=== PATIENT | female | born 1965 | race Caucasian/White ===

== ENCOUNTER 2018-12-29 17:26 | Inpatient (IN) | payer OTHER ==
[2018-12-29 17:35] VITALS: BMI 26.1
--- NOTE | 2018-12-29 18:05 | PDOC ---
History of Present Illness - General Chief Complaint: Vaginal Bleeding Stated Complaint: VAGINAL BLEEDING X 2 WEEKS,FEELS TIRED Time Seen by Provider: 12/29/18 17:29 History Source: Patient Exam Limitations: No Limitations - History of Present Illness Initial Comments: 12/29/18 18:03 53y F with PMH of HTN presenting to ED with complaints of vaginal bleeding x2 weeks and weakness. Patient says that she has been having heavy bleeding with clots. She saw her manager latin at [facility], had blood work and ultrasound done but does not know the results. She says she was placed on a pill which has reduced the bleeding but she says she feels tired, especially when she exerts herself. She also says that she is appearing more pale. She saw her PMD today and was told to come to the ED. Denies abdominal pain, urinary symptoms, headache, n/v/d, chest pain, sob, fevers, chills. PMD: Natalee PMH: see hpi Meds: see med rec Allergies: PCN Past History - Past Medical History Allergies/Adverse Reactions: Allergies Allergy/AdvReac Type Severity Reaction Status Date / Time Penicillins Allergy Intermediate Rash Verified 12/29/18 17:28 Home Medications: Ambulatory Orders Amlodipine Besylate [Norvasc -] 5 mg PO DAILY 12/29/18 Ferrous Sulfate [Slow Fe] 142 mg PO DAILY 12/29/18 Hydrochlorothiazide [Hctz -] 12.5 mg PO DAILY 12/29/18 COPD: No HTN: Yes - Psycho Social/Smoking Cessation Hx Smoking History: Never smoked Hx Alcohol Use: No Drug/Substance Use Hx: No Review of Systems - Review of Systems Constitutional: Yes: Weakness HEENTM: No: Symptoms Reported Respiratory: No: Symptoms reported Cardiac (ROS): Yes: Lightheadedness ABD/GI: No: Symptoms Reported : Yes: See HPI Musculoskeletal: No: Symptoms Reported Integumentary: No: Symptoms Reported Neurological: No: Symptoms reported *Physical Exam - Vital Signs Last Vital Signs Temp Pulse Resp BP Pulse Ox 98 F 77 19 166/91 100 12/29/18 17:28 12/29/18 17:28 12/29/18 17:28 12/29/18 17:28 12/29/18 17:28 - Physical Exam General Appearance: Yes: Appropriately Dressed, Mild Distress, Thin HEENT: positive: EOMI, RADHA, Pale Conjunctivae, Other (pale mucosa) Neck: positive: Trachea midline, Supple. negative: Lymphadenopathy (R), Lymphadenopathy (L) Respiratory/Chest: positive: Lungs Clear, Normal Breath Sounds. negative: Crackles, Rales, Rhonchi, Stridor, Wheezing Cardiovascular: positive: Regular Rhythm, Regular Rate, S1, S2. negative: Edema , JVD, Murmur Vascular Pulses: Dorsalis-Pedis (R): 2+, Doralis-Pedis (L): 2+ Female Pelvic Exam: positive: vaginal bleeding (pooling into vault) Gastrointestinal/Abdominal: positive: Normal Bowel Sounds, Soft Musculoskeletal: negative: CVA Tenderness Extremity: positive: Normal Capillary Refill. negative: Pedal Edema, Swelling, Calf Tenderness Integumentary: positive: Dry, Warm, Pale Neurologic: positive: development expert II-XII NML intact, Fully Oriented, Alert, Normal Mood/ Affect, Normal Response, Motor Strength 5/5 ED Treatment Course - LABORATORY CBC & Chemistry Diagram: 12/29/18 17:50 12/29/18 17:50 - RADIOLOGY Radiology Studies Ordered: Category Date Time Status TRANSVAGINAL ULTRASOUND US [US] Stat Ultrasound 12/29/18 18:00 Ordered Medical Decision Making - Medical Decision Making 12/29/18 19:07 53y F presenting to ED for weakness and pallor likely 2/2 vaginal bleeding. will order cbc, cmp, coags, ts, tvus. hgb 6.7, coags wnl. will transfuse 2u. pt consented. TVUS shows endometrial thickening. no masses. due to continuous bleeding (blood in vault) and anemia requiring trasfusion, patient will benefit from admission. signed out to night team, will need DIAGNOSTIC TECHNOLOGIST consult. 12/29/18 19:11 Discharge - Discharge Information Problems reviewed: Yes Clinical Impression/Diagnosis: Vaginal bleeding Anemia Qualifiers: Anemia type: unspecified type Qualified Code(s): D64.9 - Anemia, unspecified Condition: Stable - Admission Yes - Follow up/Referral Referrals: Palomo Albright MD [Primary Care Provider] - - Patient Discharge Instructions - Post Discharge Activity
--- NOTE | 2018-12-29 18:08 | PDOC ---
Attending Attestation - Resident Resident Name: AlysiaAlondra - ED Attending Attestation I have performed the following: I have examined & evaluated the patient, The case was reviewed & discussed with the resident, I agree w/resident's findings & plan - HPI HPI: 12/29/18 18:05 53-year-old female presenting with heavy vaginal bleeding x2 weeks, now associated with generalized weakness and pallor over the last 4 to 5 days. She went to see her primary care doctor, Dr. Albright earlier this afternoon, told that her color was abnormal refer her to the emergency department for further evaluation. She had seen her proof clerk at [facility] for evaluation of the dysfunctional uterine bleeding presumed to be related to her perimenopausal state, had not received her ultrasound reports yet despite phone calls. Patient denies any fevers, chills, abdominal pain, nausea, vomiting, diarrhea or any urinary symptoms. - Physicial Exam PE: 12/29/18 18:06 Agree with the resident's HPI and PE as documented in the electronic medical record. NAD, well appearing, EOMI, PERRL, pale conjunctiva., anicteric; neck supple. lungs clear, RRR, abdomen soft nontender. no rebound, guarding. Back nontender. VEE x4, no focal neuro deficits. No peripheral edema. Pale color for ethnicity, WWP. no jaundice. see pelvic exam done by resident, +Bleeding 12/29/18 19:00 - Medical Decision Making 12/29/18 18:07 Vital Signs Temp Pulse Resp BP Pulse Ox 98 F 77 19 166/91 100 12/29/18 17:28 12/29/18 17:28 12/29/18 17:28 12/29/18 17:28 12/29/18 17:28 Differential diagnosis includes the following dysfunctional uterine bleeding, fibroids, infection, hormonal imbalance, anemia, electrolyte/metabolic derangements, mass Type and screen sent, basic labs including CBC. Pelvic ultrasound to evaluate for structural abnormalities for source of dysfunctional uterine bleeding. Had received prior call in from primary care office, clinical callback pending results. Laboratory results noted for acute anemia symptomatic in nature due to the heavy vaginal bleeding consistent with bedside pelvic examination. She is actively bleeding to a moderate degree per resident examination. H/H is 6.7/ 20.3. Electrolytes and coags are fine. Type and screen sent x2, will transfuse 2 units PRBCs and will admit to medical team for management of symptomatic anemia and bleeding, serial crits and examinations. SUPERVISOR SHIPPING ROOM cs with [facility], Dr Marcelo, at [facility] for possible surgical/ procedural management. 12/29/18 18:59 12/31/18 07:34
[2018-12-29 18:14] LABS: BASO % 0.7 % (0-2.0); EOS % 2.7 % (0-4.5); LYMPH % 28.3 % (8-40); MCH 28.6 pg (25.7-33.7); MCHC 33.1 g/dl (32.0-36.0); MEAN CELL VOLUME 86.5 fl (80-96); MEAN PLT VOLUME 8.6 fl (7.5-11.1); MONO % 8.1 % (3.8-10.2); NEUT % 60.2 % (42.8-82.8); PLATELET COUNT 300 K/MM3 (134-434); RBC 2.35 M/mm3 (3.60-5.2); RDW 12.5 % (11.6-15.6); WHITE BLOOD COUNT 4.5 K/mm3 (4.0-10.8)
[2018-12-29 18:17] LABS: HEMATOCRIT 20.3 % (32.4-45.2); HEMOGLOBIN 6.7 GM/dl (10.7-15.3)
[2018-12-29 18:20] LABS: INR 1.06 (0.82-1.09); PROTHROMBIN TIME (PATIENT) 11.9 SEC (10.2-13.0)
[2018-12-29 18:24] LABS: ALBUMIN 3.8 g/dl (3.4-5.0); ALK PHOS 34 U/L (45-117); ANION GAP 9 MMOL/L (8-16); BILIRUBIN,TOTAL 0.3 mg/dl (0.2-1); CALCIUM 8.5 mg/dl (8.5-10); CHLORIDE 100 mmol/L (98-107); CO2 26 mmol/L (21-32); GLUCOSE,RANDOM 96 mg/dl (74-106); POTASSIUM 3.7 mmol/L (3.5-5.1); SGOT/AST 17 U/L (15-37); SGPT/ALT 15 U/L (13-61); SODIUM 135 mmol/L (136-145); TOT PROT 6.5 g/dl (6.4-8.2)
[2018-12-29 18:26] LABS: CREATININE < 0.6 mg/dl (0.55-1.3)
[2018-12-29 18:33] LABS: EPITHELIAL CELLS FEW /hpf
--- NOTE | 2018-12-29 22:02 | HP ---
Admitting History and Physical - Primary Care Physician PCP: Palomo Albright - Admission Chief Complaint: SOB, Fatigue, Vaginal Bleeding History of Present Illness: This is a 53 y/o woman with a PMHx of HTN. Who presents to the ED with generalized weakness, SOB, and vaginal bleeding with large clots x 3 weeks. Patient reports having irregular heavy menstrual cycles lasting > 5 days. Patient reports having increased SOB on exertion. She reports seeing a INVOICE CLERK and being placed on medication to stop the bleeding, which she states "It did not help". Patient reports loss of weight, appetite for 2-3 months. Patient denies fever, chills, cough, CP, palpitations, AP, N/V/D, constipation, melena, hematochezia, dysuria History Source: Patient Limitations to Obtaining History: No Limitations - Past Medical History Cardiovascular: Yes: HTN Reproductive: Yes: Fibroids - Smoking History Smoking history: Never smoked - Alcohol/Substance Use Hx Alcohol Use: No Home Medications - Allergies Allergies/Adverse Reactions: Allergies Allergy/AdvReac Type Severity Reaction Status Date / Time Penicillins Allergy Intermediate Rash Verified 12/29/18 17:28 - Home Medications Home Medications: Ambulatory Orders Amlodipine Besylate [Norvasc -] 5 mg PO DAILY 12/29/18 Ferrous Sulfate [Slow Fe] 142 mg PO DAILY 12/29/18 Hydrochlorothiazide [Hctz -] 12.5 mg PO DAILY 12/29/18 Family Medical History Family Hx Cancer: Mother (Ovarian- ) Family Hx Cardiac Disorders: Father (Stroke- ) Other Family History: Brother- alive and well Review of Systems - Review of Systems Constitutional: reports: Loss of Appetite, Unintentional Wgt. Loss, Weakness Eyes: reports: No Symptoms HENT: reports: No Symptoms Neck: reports: No Symptoms Cardiovascular: reports: Shortness of Breath Respiratory: reports: SOB, SOB on Exertion Gastrointestinal: reports: No Symptoms Genitourinary: reports: Vaginal Bleeding Breasts: reports: No Symptoms Reported Musculoskeletal: reports: No Symptoms Integumentary: reports: No Symptoms Neurological: reports: Weakness Endocrine: reports: No Symptoms Hematology/Lymphatic: reports: Excessive Bleeding Psychiatric: reports: No Symptoms Pain Intensity: 0 Physical Examination Vital Signs: Vital Signs Temperature 98.5 F 12/29/18 19:58 Pulse Rate 72 12/29/18 19:58 Respiratory Rate 12/29/18 17:28 Blood Pressure 148/98 12/29/18 19:58 O2 Sat by Pulse Oximetry (%) 100 12/29/18 19:58 Constitutional: Yes: Anxious, Pallor Eyes: Yes: Conjunctiva Clear (pale), EOM Intact, PERRL HENT: Yes: WNL, Atraumatic, Normocephalic Neck: Yes: WNL, Supple, Trachea Midline Cardiovascular: Yes: WNL, Regular Rate and Rhythm, S1, S2 Respiratory: Yes: WNL, Regular, CTA Bilaterally Gastrointestinal: Yes: WNL, Normal Bowel Sounds, Soft Breast(s): Yes: WNL Musculoskeletal: Yes: WNL Extremities: Yes: WNL Edema: No Peripheral Pulses WNL: Yes Neurological: Yes: WNL, Alert, Oriented, Cran Nerves II-XII Intact ...Motor Strength: WNL Psychiatric: Yes: WNL, Alert, Oriented Labs: CBC, BMP 12/29/18 17:50 12/29/18 17:50 Laboratory Results - last 24 hr 12/29/18 12/29/18 12/29/18 17:50 17:50 17:50 WBC 4.5 RBC 2.35 L Hgb 6.7 L* Hct 20.3 L MCV 86.5 MCH 28.6 MCHC 33.1 RDW 12.5 Plt Count 300 MPV 8.6 Absolute Neuts (auto) 2.7 Neutrophils % 60.2 Lymphocytes % 28.3 Monocytes % 8.1 Eosinophils % 2.7 Basophils % 0.7 PT with INR INR PTT (Actin FS) Sodium 135 L Potassium 3.7 Chloride 100 Carbon Dioxide 26 Anion Gap 9 BUN 13.0 Creatinine < 0.6 Est GFR (CKD-EPI)AfAm 119.77 Est GFR (CKD-EPI)NonAf 103.34 Random Glucose 96 Calcium 8.5 Ferritin Total Bilirubin 0.3 AST 17 ALT 15 Alkaline Phosphatase 34 L Total Protein 6.5 Albumin 3.8 Urine Color Urine Appearance Urine pH Urine Protein Urine Glucose (UA) Urine Ketones Urine Blood Urine Nitrite Urine Bilirubin Urine Urobilinogen Ur Leukocyte Esterase Urine RBC Urine WBC Ur Transition Epith Cell Urine Bacteria Blood Type O NEGATIVE Antibody Screen Negative Crossmatch See Detail 12/29/18 12/29/18 12/29/18 17:50 17:50 17:50 WBC RBC Hgb Hct MCV MCH MCHC RDW Plt Count MPV Absolute Neuts (auto) Neutrophils % Lymphocytes % Monocytes % Eosinophils % Basophils % PT with INR 11.9 INR 1.06 PTT (Actin FS) 26.5 Sodium Potassium Chloride Carbon Dioxide Anion Gap BUN Creatinine Est GFR (CKD-EPI)AfAm Est GFR (CKD-EPI)NonAf Random Glucose Calcium Ferritin Total Bilirubin AST ALT Alkaline Phosphatase Total Protein Albumin Urine Color Yellow Urine Appearance Slightly Urine pH 5.5 Urine Protein Negative Urine Glucose (UA) Negative Urine Ketones Negative Urine Blood 3+ H Urine Nitrite Negative Urine Bilirubin Negative Urine Urobilinogen 0.2 Ur Leukocyte Esterase Negative Urine RBC 40-60 Urine WBC 0-2 Ur Transition Epith Cell Few Urine Bacteria Few Blood Type Antibody Screen Crossmatch 12/29/18 17:50 WBC RBC Hgb Hct MCV MCH MCHC RDW Plt Count MPV Absolute Neuts (auto) Neutrophils % Lymphocytes % Monocytes % Eosinophils % Basophils % PT with INR INR PTT (Actin FS) Sodium Potassium Chloride Carbon Dioxide Anion Gap BUN Creatinine Est GFR (CKD-EPI)AfAm Est GFR (CKD-EPI)NonAf Random Glucose Calcium Ferritin 11.2 Total Bilirubin AST ALT Alkaline Phosphatase Total Protein Albumin Urine Color Urine Appearance Urine pH Urine Protein Urine Glucose (UA) Urine Ketones Urine Blood Urine Nitrite Urine Bilirubin Urine Urobilinogen Ur Leukocyte Esterase Urine RBC Urine WBC Ur Transition Epith Cell Urine Bacteria Blood Type Antibody Screen Crossmatch Imaging - Results Chest X-ray: Image Reviewed Ultrasound: Image Reviewed Problem List - Problems (1) Symptomatic anemia Assessment/Plan: Likely secondary to Menorrhagia Hgb 6.7 2 units of PRBCs-pending Will give Lasix between units Serial CBC Monitor vitals Add on FE, TIBC, Ferritin Consider Hematology consult Code(s): D64.9 - ANEMIA, UNSPECIFIED (2) Menorrhagia Assessment/Plan: Appreciate INVOICE CLERK consult PRBCs-pending Monitor vitals Trend CBC Code(s): N92.0 - EXCESSIVE AND FREQUENT MENSTRUATION WITH REGULAR CYCLE (3) HTN (hypertension) Assessment/Plan: stable Monitor BP Continue home med Code(s): I10 - ESSENTIAL (PRIMARY) HYPERTENSION Assessment/Plan This is a 53y/o woman with a PMHx of HTN. Admitted for Symptomatic Anemia, Menorrhagia for further evaluation of their emergent condition. Plan: See Problem List FEN D51/2NS@60ml/hr Replete lytes prn NPO DVT ppx OOB SCDs Hold ACs secondary to Anemia, Menorrhagia Code Status: Full Code Dispo: Requires Inpatient Care Visit type - Emergency Visit Emergency Visit: Yes ED Registration Date: 12/29/18 Care time: The patient presented to the Emergency Department on the above date and was hospitalized for further evaluation of their emergent condition. - New Patient This patient is new to me today: Yes Date on this admission: 12/29/18 - Critical Care Critical Care patient: No
[2018-12-30] MEDS ORDERED: FUROSEMIDE 40 MG/4 ML INJECTABLE VIAL IVPUSH ONE (04:22)
--- NOTE | 2018-12-30 08:09 | PN ---
Progress Note (short form) - Note Progress Note: rn operating room patient seen, receiving blood transfusion , has mild vaginal bleeding . advised hysteroscopy D&C , risks and benefit discussed.
[2018-12-30 11:33] LABS: BASO % 0.9 % (0-2.0); EOS % 2.5 % (0-4.5); HEMATOCRIT 26.8 % (32.4-45.2); HEMOGLOBIN 9.2 GM/dL (10.7-15.3); LYMPH % 21.7 % (8-40); MCH 28.8 pg (25.7-33.7); MCHC 34.2 g/dl (32.0-36.0); MEAN CELL VOLUME 84.1 fl (80-96); MEAN PLT VOLUME 8.4 fl (7.5-11.1); MONO % 7.7 % (3.8-10.2); NEUT % 67.2 % (42.8-82.8); PLATELET COUNT 274 K/MM3 (134-434); RBC 3.19 M/mm3 (3.60-5.2); RDW 14.9 % (11.6-15.6); WHITE BLOOD COUNT 4.1 K/mm3 (4.0-10.0)
--- NOTE | 2018-12-30 12:21 | PN ---
Progress Note, Physician Chief Complaint: Anemia Menorrhagia History of Present Illness: Previous notes and events reviewed awake and alert NAD s/p 2U PRBC blood transfusion Hg 6.7~9.2 patient is scheduled for D&C with Dr Tirado at 2pm sts having mild vaginal bleeding - Objective Vital Signs: Vital Signs Temperature 98.2 F 12/30/18 09:05 Pulse Rate 75 12/30/18 09:05 Respiratory Rate 20 12/30/18 09:05 Blood Pressure 142/90 12/30/18 09:05 O2 Sat by Pulse Oximetry (%) 99 12/30/18 09:00 Constitutional: Yes: No Distress, Calm Eyes: Yes: Conjunctiva Clear HENT: Yes: Atraumatic Cardiovascular: Yes: Regular Rate and Rhythm Respiratory: Yes: Regular, CTA Bilaterally Gastrointestinal: Yes: Normal Bowel Sounds, Soft Musculoskeletal: Yes: WNL Extremities: Yes: WNL Edema: No Neurological: Yes: Alert, Oriented Psychiatric: Yes: Alert, Oriented Labs: CBC, BMP 12/30/18 10:52 12/29/18 17:50 INR, PTT INR 1.06 (0.82-1.09) 12/29/18 17:50 Problem List - Problems (1) Anemia Assessment/Plan: -s/p 2U PRBC transfusion -Hg 9.2 -monitor Hg daily -transfuse for Hg 8.0 -HAND EDGER on board -Iron panel pending Code(s): D64.9 - ANEMIA, UNSPECIFIED Qualifiers: Anemia type: unspecified type Qualified Code(s): D64.9 - Anemia, unspecified (2) HTN (hypertension) Assessment/Plan: -Amlodipine and HCTZ -low Na diet Code(s): I10 - ESSENTIAL (PRIMARY) HYPERTENSION (3) Menorrhagia Assessment/Plan: -HAND EDGER consult -scheduled for D&C at 2pm -medically cleared for D&C -monitor Hg daily -transfuse for Hg <8.0 Code(s): N92.0 - EXCESSIVE AND FREQUENT MENSTRUATION WITH REGULAR CYCLE Assessment/Plan see problem list
[2018-12-30] MEDS ORDERED: amLODIPine BESYLATE 5 MG TABLET (FP) PO ONE (13:15)
[2018-12-30] MEDS ORDERED: LIDOCAINE HCL/PF 2% SDV 5ML VIAL ONE (13:56)
[2018-12-30] MEDS ORDERED: MIDAZOLAM HCL 2 MG/2 ML SINGLE DOSE VIAL ONE (13:56)
[2018-12-30] MEDS ORDERED: PROPOFOL 20 ML ONE (13:56)
[2018-12-30 14:03] LABS: ALBUMIN 3.5 g/dl (3.4-5.0); BILIRUBIN,TOTAL 1.3 mg/dL (0.2-1); BLOOD UREA NITROGEN 6.7 mg/dL (7-18); CALCIUM 8.5 mg/dL (8.5-10.1); CREATININE 0.6 mg/dL (0.55-1.3); POTASSIUM 3.5 mmol/L (3.5-5.1); TOT PROT 6.8 g/dl (6.4-8.2)
--- NOTE | 2018-12-30 14:12 | EKG ---
Test Reason : Blood Pressure : / mmHG Vent. Rate : 069 BPM Atrial Rate : 069 BPM P-R Int : 128 ms QRS Dur : 080 ms QT Int : 408 ms P-R-T Axes : 066 012 021 degrees QTc Int : 437 ms NORMAL SINUS RHYTHM WHEN COMPARED WITH ECG OF 15-JAN-2000 15:15, NO SIGNIFICANT CHANGE WAS FOUND Confirmed by GAGE HANNA MD ([id number]) on 12/30/2018 2:12:33 PM Referred By: DR MARTINES Confirmed By:GAGE HANNA MD
[2018-12-30] MEDS ORDERED: IBUPROFEN 800 MG/8 ML IJ IVPB PRN (14:21)
[2018-12-30] MEDS ORDERED: oxyCODONE HCL 5 MG TABLET PO PRN (14:21)
[2018-12-30] MEDS ORDERED: ONDANSETRON 4 MG/2 ML VIAL IVPUSH PRN (14:21)
[2018-12-30] MEDS ORDERED: DEXAMETHASONE SOD PHOSPHATE 4 MG/1 ML VIAL ONE (14:22)
[2018-12-30] MEDS ORDERED: LACTATED RINGERS SOLUTION 1,000 ML IV SCH (15:00)
--- NOTE | 2018-12-30 15:48 | OP ---
DATE OF OPERATION: 12/30/2018 PREOPERATIVE DIAGNOSIS: Menometrorrhagia, anemia. POSTOPERATIVE DIAGNOSIS: Menometrorrhagia, anemia, endometrial polyp. SURGEON: Garett Tirado MD ANESTHESIA: General. ANESTHESIOLOGIST: Amanda Woodson MD ESTIMATED BLOOD LOSS: 25 mL. DESCRIPTION OF PROCEDURE: Patient was taken to the operating room under general anesthesia. Abdomen, perineum, vagina were prepped and draped. Examination under anesthesia revealed external genitalia to be normal. Vagina was normal. Cervix was 1st-degree prolapse. Uterus anteverted, normal size. Adnexa, no masses were palpated. Then with a weighted speculum in the vagina, anterior lip of the cervix was grasped with single-tooth tenaculum. Uterine cavity was sounded to 8 cm then hysteroscope was introduced, and visualization of endocervical canal appeared to be normal. There was an enlarged polyp in the lower uterine segment on the posterior area of the uterus. Endometrium appeared to be generally atrophic. Both cornual regions were identified and visualized. Tubal ostia were seen. No other abnormality was noted. Then the polyp was removed and then dilation and curettage was done. Patient tolerated the procedure well. Left the OR in good condition. Lucita [id number]
[2018-12-30] MEDS: IBUPROFEN 600 MG TABLET (FP) PO PRN (17:07)
[2018-12-30] MEDS: ELECTROLYTE-148 SOLN 1,000 ML IV SCH (17:09)
[2018-12-30 21:51] LABS: HEMATOCRIT 26.3 % (32.4-45.2); HEMOGLOBIN 9.1 GM/dL (10.7-15.3); MCH 28.8 pg (25.7-33.7); MCHC 34.7 g/dl (32.0-36.0); MEAN PLT VOLUME 8.5 fl (7.5-11.1); PLATELET COUNT 275 K/MM3 (134-434); RBC 3.17 M/mm3 (3.60-5.2); RDW 14.8 % (11.6-15.6); WHITE BLOOD COUNT 5.8 K/mm3 (4.0-10.0)
[2018-12-31 07:52] LABS: BASO % 0.3 % (0-2.0); EOS % 0.3 % (0-4.5); HEMATOCRIT 24.9 % (32.4-45.2); HEMOGLOBIN 8.7 GM/dL (10.7-15.3); LYMPH % 19.3 % (8-40); MCH 29.4 pg (25.7-33.7); MEAN CELL VOLUME 83.8 fl (80-96); MEAN PLT VOLUME 8.8 fl (7.5-11.1); MONO % 7.8 % (3.8-10.2); NEUT % 72.3 % (42.8-82.8); PLATELET COUNT 282 K/MM3 (134-434); RBC 2.97 M/mm3 (3.60-5.2); RDW 14.7 % (11.6-15.6); WHITE BLOOD COUNT 5.2 K/mm3 (4.0-10.0)
[2018-12-31 08:12] LABS: ALBUMIN 3.3 g/dl (3.4-5.0); BILIRUBIN,TOTAL 0.7 mg/dL (0.2-1); CALCIUM 8.3 mg/dL (8.5-10.1); CREATININE 0.5 mg/dL (0.55-1.3); POTASSIUM 3.9 mmol/L (3.5-5.1); TOT PROT 6.3 g/dl (6.4-8.2)
--- NOTE | 2018-12-31 09:39 | OP ---
Operative Note - Note: Operative Date: 12/30/18 Pre-Operative Diagnosis: menometrorrhagia,anemia Operation: hysteroscopy,D&C,polypectomy Findings: 2 cm, EM polyp Surgeon: Garett Tirado Anesthesiologist/ASSOCIATE [employer] JUDGE: Amanda Woodson Specimens Removed: endometrial polyp, EMC Estimated Blood Loss (mls): 50 Blood Volume Replaced (mls): 0 Operative Report Dictated: Yes
[2018-12-31] MEDS ORDERED: amLODIPine BESYLATE 5 MG TABLET (FP) PO SCH (10:00)
[2018-12-31] MEDS ORDERED: HYDROCHLOROTHIAZIDE 12.5 MG CAPSULE (FP) PO SCH (10:00)
[2018-12-31] MEDS: IBUPROFEN 600 MG TABLET (FP) PO PRN ×2 (10:35→22:32)
[2018-12-31] MEDS: HYDROCHLOROTHIAZIDE 12.5 MG CAPSULE (FP) PO SCH (10:36)
[2018-12-31] MEDS: amLODIPine BESYLATE 5 MG TABLET (FP) PO SCH (10:36)
[2018-12-31] MEDS: ELECTROLYTE-148 SOLN 1,000 ML IV SCH (15:04)
--- NOTE | 2018-12-31 15:30 | PN ---
Progress Note, Physician Chief Complaint: Anemia Menorrhagia History of Present Illness: Previous notes and events reviewed awake and alert NAD Hg 8.7 D&C yesterday sts having mild vaginal bleeding - Current Medication List Current Medications: Active Medications Amlodipine Besylate (Norvasc -) 5 mg PO DAILY [facility] Last Admin: 12/31/18 10:36 Dose: 5 mg Hydrochlorothiazide (Hctz -) 12.5 mg PO DAILY [facility] Last Admin: 12/31/18 10:36 Dose: 12.5 mg Parenteral Electrolytes (Plasma-Lyte 148 -) 1,000 mls @ 125 mls/hr IV ASDIR [facility] Last Admin: 12/31/18 15:04 Dose: Not Given Ibuprofen (Motrin -) 600 mg PO Q6H PRN PRN Reason: FEVER Last Admin: 12/31/18 10:35 Dose: 600 mg Ibuprofen (Caldolor Injection -) 800 mg IVPB Q6H PRN PRN Reason: PAIN LEVEL 1-5 Ondansetron HCl (Zofran Injection) 4 mg IVPUSH Q6H PRN PRN Reason: NAUSEA Oxycodone HCl (Roxicodone -) 5 mg PO Q4H PRN PRN Reason: PAIN LEVEL 6-10 - Objective Vital Signs: Vital Signs Temperature 98.1 F 12/31/18 10:00 Pulse Rate 66 12/31/18 10:00 Respiratory Rate 20 12/31/18 10:00 Blood Pressure 136/84 12/31/18 10:00 O2 Sat by Pulse Oximetry (%) 96 12/30/18 21:00 Constitutional: Yes: No Distress, Calm Eyes: Yes: Conjunctiva Clear HENT: Yes: Atraumatic Cardiovascular: Yes: Regular Rate and Rhythm Respiratory: Yes: Regular, CTA Bilaterally Gastrointestinal: Yes: Normal Bowel Sounds, Soft Musculoskeletal: Yes: WNL Extremities: Yes: WNL Edema: No Neurological: Yes: Alert, Oriented Psychiatric: Yes: Alert, Oriented Labs: CBC, BMP 12/31/18 06:10 12/31/18 06:10 INR, PTT INR 1.06 (0.82-1.09) 12/29/18 17:50 Microbiology 12/29/18 17:50 Urine - Urine Clean Catch Urine Culture - Final Strep Agalactiae Group B Problem List - Problems (1) Anemia Assessment/Plan: -Hg 8.7 -monitor Hg daily -transfuse for Hg 8.0 -ELECTRICIAN CRANE MAINTENANCE on board -Iron panel pending Code(s): D64.9 - ANEMIA, UNSPECIFIED Qualifiers: Anemia type: unspecified type Qualified Code(s): D64.9 - Anemia, unspecified (2) HTN (hypertension) Assessment/Plan: -Amlodipine and HCTZ -low Na diet Code(s): I10 - ESSENTIAL (PRIMARY) HYPERTENSION (3) Menorrhagia Assessment/Plan: -ELECTRICIAN CRANE MAINTENANCE on board - D&C yesterday -medically cleared for D&C -monitor Hg daily -transfuse for Hg <8.0 Code(s): N92.0 - EXCESSIVE AND FREQUENT MENSTRUATION WITH REGULAR CYCLE Assessment/Plan see problem list
[2019-01-01 06:49] LABS: HEMATOCRIT 25.8 % (32.4-45.2); HEMOGLOBIN 9.2 GM/dL (10.7-15.3); MCH 29.9 pg (25.7-33.7); MCHC 35.7 g/dl (32.0-36.0); MEAN CELL VOLUME 83.6 fl (80-96); MEAN PLT VOLUME 8.8 fl (7.5-11.1); PLATELET COUNT 263 K/MM3 (134-434); RBC 3.08 M/mm3 (3.60-5.2); RDW 15.2 % (11.6-15.6); WHITE BLOOD COUNT 5.2 K/mm3 (4.0-10.0)
[2019-01-01 07:49] LABS: ALBUMIN 3.4 g/dl (3.4-5.0); BILIRUBIN,TOTAL 0.8 mg/dL (0.2-1); BLOOD UREA NITROGEN 14.2 mg/dL (7-18); CALCIUM 8.5 mg/dL (8.5-10.1); CREATININE 0.6 mg/dL (0.55-1.3); POTASSIUM 3.8 mmol/L (3.5-5.1); TOT PROT 6.3 g/dl (6.4-8.2)
--- NOTE | 2019-01-01 07:57 | PN ---
Progress Note, Physician Chief Complaint: AWAKE ALERT FEELING BETTER STILL TIRED/FATIGUED VAGINAL BLEEDING STOPPED - Current Medication List Current Medications: Active Medications Amlodipine Besylate (Norvasc -) 5 mg PO DAILY [facility] Last Admin: 12/31/18 10:36 Dose: 5 mg Hydrochlorothiazide (Hctz -) 12.5 mg PO DAILY [facility] Last Admin: 12/31/18 10:36 Dose: 12.5 mg Parenteral Electrolytes (Plasma-Lyte 148 -) 1,000 mls @ 125 mls/hr IV ASDIR [facility] Last Admin: 12/31/18 15:04 Dose: Not Given Ferric Carboxymaltose 750 mg/ (Sodium Chloride) 265 mls @ 530 mls/hr IVPB ONCE ONE Stop: 01/01/19 09:29 Ibuprofen (Motrin -) 600 mg PO Q6H PRN PRN Reason: FEVER Last Admin: 12/31/18 22:32 Dose: 600 mg Ibuprofen (Caldolor Injection -) 800 mg IVPB Q6H PRN PRN Reason: PAIN LEVEL 1-5 Ondansetron HCl (Zofran Injection) 4 mg IVPUSH Q6H PRN PRN Reason: NAUSEA Oxycodone HCl (Roxicodone -) 5 mg PO Q4H PRN PRN Reason: PAIN LEVEL 6-10 - Objective Vital Signs: Vital Signs Temperature 98.2 F 12/31/18 19:45 Pulse Rate 72 12/31/18 19:45 Respiratory Rate 20 12/31/18 19:45 Blood Pressure 112/62 12/31/18 19:45 O2 Sat by Pulse Oximetry (%) 96 12/31/18 21:00 Constitutional: Yes: Mild Distress Eyes: Yes: WNL HENT: Yes: WNL Neck: Yes: WNL Cardiovascular: Yes: Regular Rate and Rhythm Respiratory: Yes: WNL Gastrointestinal: Yes: Soft Genitourinary: Yes: WNL Extremities: Yes: WNL Edema: No Peripheral Pulses WNL: Yes Integumentary: Yes: WNL Wound/Incision: Yes: Clean/Dry Neurological: Yes: WNL ...Motor Strength: WNL Psychiatric: Yes: WNL Labs: CBC, BMP 01/01/19 05:21 01/01/19 05:21 INR, PTT INR 1.06 (0.82-1.09) 12/29/18 17:50 Problem List - Problems (1) Anemia Code(s): D64.9 - ANEMIA, UNSPECIFIED Qualifiers: Anemia type: unspecified type Qualified Code(s): D64.9 - Anemia, unspecified (2) HTN (hypertension) Code(s): I10 - ESSENTIAL (PRIMARY) HYPERTENSION (3) Menorrhagia Code(s): N92.0 - EXCESSIVE AND FREQUENT MENSTRUATION WITH REGULAR CYCLE (4) Symptomatic anemia Code(s): D64.9 - ANEMIA, UNSPECIFIED (5) Vaginal bleeding Code(s): N93.9 - ABNORMAL UTERINE AND VAGINAL BLEEDING, UNSPECIFIED Assessment/Plan IV IRON NOW CBC IN MORNING COLACE PRN OOB TO CHAIR DVT PROPHYLAXIS CHECK TUMOR MARKERS AWAIT POLYP BIOPSY RESULTS
[2019-01-01] MEDS ORDERED: FOLIC ACID INJECTION - 1 MG, THIAMINE HCL 100 MG, MULTIVIT INJECTION ADULT 10 ML in SOD... IVPB ONE (09:00)
[2019-01-01] MEDS ORDERED: FERRIC CARBOXYMALTOSE 750 MG in SODIUM CHLORIDE 250 ML IVPB ONE (09:00)
[2019-01-01] MEDS: amLODIPine BESYLATE 5 MG TABLET (FP) PO SCH (12:41)
[2019-01-01] MEDS: HYDROCHLOROTHIAZIDE 12.5 MG CAPSULE (FP) PO SCH (12:41)
[2019-01-01] MEDS: ELECTROLYTE-148 SOLN 1,000 ML IV SCH (16:53)
[2019-01-01] MEDS: DOCUSATE SODIUM 100 MG CAPSULE (FP) PO SCH ×2 (16:58→21:31)
[2019-01-02] MEDS: DOCUSATE SODIUM 100 MG CAPSULE (FP) PO SCH (06:34)
[2019-01-02 07:34] LABS: HEMATOCRIT 26.7 % (32.4-45.2); HEMOGLOBIN 9.3 GM/dL (10.7-15.3); MCH 28.4 pg (25.7-33.7); MCHC 34.7 g/dl (32.0-36.0); MEAN CELL VOLUME 82.1 fl (80-96); MEAN PLT VOLUME 8.7 fl (7.5-11.1); PLATELET COUNT 251 K/MM3 (134-434); RBC 3.25 M/mm3 (3.60-5.2); RDW 15.1 % (11.6-15.6); WHITE BLOOD COUNT 4.5 K/mm3 (4.0-10.0)
[2019-01-02 08:36] LABS: BLOOD UREA NITROGEN 10.5 mg/dL (7-18); CALCIUM 8.5 mg/dL (8.5-10.1); CREATININE 0.6 mg/dL (0.55-1.3); PHOSPHOROUS 3.8 mg/dL (2.5-4.9); POTASSIUM 3.8 mmol/L (3.5-5.1)
[2019-01-02] MEDS ORDERED: PT OWN MED DRAWER 7, Y5N ONE (09:50)
--- NOTE | 2019-01-02 10:35 | DS ---
Physical Examination Vital Signs: Vital Signs Temperature 98.2 F 01/01/19 19:30 Pulse Rate 65 01/02/19 07:47 Respiratory Rate 20 01/02/19 07:47 Blood Pressure 113/67 01/02/19 07:47 O2 Sat by Pulse Oximetry (%) 99 01/01/19 21:00 Findings/Remarks: Laboratory Results - last 24 hr 12/29/18 01/02/19 01/02/19 17:50 06:10 06:10 WBC 4.5 RBC 3.25 L Hgb 9.3 L Hct 26.7 L MCV 82.1 MCH 28.4 MCHC 34.7 RDW 15.1 Plt Count 251 MPV 8.7 Sodium 136 Potassium 3.8 Chloride 105 Carbon Dioxide 26 Anion Gap 6 L BUN 10.5 Creatinine 0.6 Est GFR (CKD-EPI)AfAm 119.77 Est GFR (CKD-EPI)NonAf 103.34 Random Glucose 87 Calcium 8.5 Phosphorus 3.8 Magnesium 2.0 Vitamin B12 340 Serum Folate 19 H Blood Type O NEGATIVE Antibody Screen Negative Crossmatch See Detail Home Medication List Medication Instructions Recorded Confirmed Type Amlodipine Besylate [Norvasc -] 5 mg PO DAILY 12/29/18 12/29/18 History Ferrous Sulfate [Slow Fe] 142 mg PO DAILY 12/29/18 12/29/18 History Hydrochlorothiazide [Hctz -] 12.5 mg PO DAILY 12/29/18 12/29/18 History Active Medications Generic Name Dose Route Start Last Admin Trade Name Freq PRN Reason Stop Dose Admin Amlodipine Besylate 5 mg 12/31/18 10:00 01/01/19 12:41 Norvasc - PO 5 mg DAILY MILDRED Administration Docusate Sodium 100 mg 01/01/19 14:00 01/02/19 06:34 Colace - PO 100 mg TID MILDRED Administration Hydrochlorothiazide 12.5 mg 12/31/18 10:00 01/01/19 12:41 Hctz - PO 12.5 mg DAILY MILDRED Administration Parenteral Electrolytes 1,000 mls @ 125 mls/hr 12/30/18 14:30 01/01/19 16:53 Plasma-Lyte 148 - IV Not Given ASDIR MILDRED Ibuprofen 600 mg 12/30/18 14:21 12/31/18 22:32 Motrin - PO 600 mg Q6H PRN Administration FEVER Ibuprofen 800 mg 12/30/18 14:21 Caldolor Injection - IVPB Q6H PRN PAIN LEVEL 1-5 Ondansetron HCl 4 mg 12/30/18 14:21 Zofran Injection IVPUSH Q6H PRN NAUSEA Oxycodone HCl 5 mg 12/30/18 14:21 Roxicodone - PO Q4H PRN PAIN LEVEL 6-10 Microbiology 12/29/18 17:50 Urine - Urine Clean Catch Urine Culture - Final Strep Agalactiae Group B Constitutional: Yes: No Distress, Calm Eyes: Yes: Conjunctiva Clear HENT: Yes: Atraumatic Cardiovascular: Yes: Regular Rate and Rhythm Respiratory: Yes: Regular, CTA Bilaterally Gastrointestinal: Yes: Normal Bowel Sounds, Soft Musculoskeletal: Yes: WNL Extremities: Yes: WNL Edema: No Neurological: Yes: Alert, Oriented Psychiatric: Yes: Alert, Oriented Labs: CBC, BMP 01/02/19 06:10 01/02/19 06:10 Discharge Summary Problems reviewed: Yes Reason For Visit: VAGINAL BLEEDING X 2 WEEKS,FEELS TIRED Current Active Problems Anemia (Acute) HTN (hypertension) (Acute) Menorrhagia (Acute) Symptomatic anemia (Acute) Vaginal bleeding (Acute) Hospital Course: This is a 53 y/o woman with a PMHx of HTN. Who presents to the ED with generalized weakness, SOB, and vaginal bleeding with large clots x 3 weeks. Patient reports having irregular heavy menstrual cycles lasting > 5 days. Patient reports having increased SOB on exertion. She reports seeing a [employer]ILD [employer] and being placed on medication to stop the bleeding, which she states "It did not help". Patient reports loss of weight, appetite for 2-3 months. Patient denies fever, chills, cough, CP, palpitations, AP, N/V/D, constipation, melena, hematochezia, dysuria While in patient received 2U PRBC with good effect and Hg rise and has been maintained around 9. Patient had D&C with [employer] and will follow up with them for biopsy results. Condition: Stable - Instructions Diet, Activity, Other Instructions: Follow up with PMD in 1 week for hospital discharge follow up and check Hg Follow up with [employer] Dr Tirado for biopsy results continue with medication as prescribed return to bleeding if develop weakness/lethargy, heavy vaginal bleeding, chest pain, respiratory distress Referrals: Palomo Albright MD [Primary Care Provider] - Garett Tirado MD [Staff Physician] - Disposition: HOME - Home Medications Comprehensive Discharge Medication List: Ambulatory Orders Amlodipine Besylate [Norvasc -] 5 mg PO DAILY 12/29/18 Ferrous Sulfate [Slow Fe] 142 mg PO DAILY 12/29/18 Hydrochlorothiazide [Hctz -] 12.5 mg PO DAILY 12/29/18 Docusate Sodium [Colace -] 100 mg PO TID #90 capsule 01/02/19 Ibuprofen [Motrin -] 600 mg PO Q6H PRN #45 tablet 01/02/19
[2019-01-02] MEDS: HYDROCHLOROTHIAZIDE 12.5 MG CAPSULE (FP) PO SCH (10:51)
[2019-01-02] MEDS: amLODIPine BESYLATE 5 MG TABLET (FP) PO SCH (10:51)
[2019-01-02 12:31] VITALS: BP 115/78; PULSE 70; TEMP 98.6
--- NOTE | 2019-01-04 13:30 | PATH ---
Surgical Pathology Report Patient Name: ELAN POLLOCK Med. Rec. #: [id number] /Age/Gender: 1965 (Age: 53) / F Account: [id number] Location: [facility] MED/SURG Taken: 12/30/2018 Received: 01/02/2019 Reported: 01/04/2019 Physicians: Garett Tirado M.D. Specimen(s) Received A: ENDOMETRIAL POLYP B: ENDOMETRIAL CURETTINGS Clinical History Menorrhagia, anemia Final Diagnosis A. ENDOMETRIAL POLYP, BIOPSY: FRAGMENTS OF ENDOMETRIAL POLYP ONE FRAGMENT OF ENDOCERVICAL POLYP. B. ENDOMETRIAL POLYP, BIOPSY: FRAGMENTS OF ENDOMETRIAL POLYP. SEPARATE FEW FRAGMENTS OF SMOOTH MUSCLE BUNDLES. SEPARATE FROM FEW FRAGMENTS OF PROLIFERATIVE ENDOMETRIUM. SQUAMOUS EPITHELIUM WITH FOCAL ACUTE INFLAMMATION. Electronically Signed Su Markham M.D. Gross Description A. Received in formalin labeled "endometrial polyp," is a 1.5 x 1.5 x 0.3 cm aggregate of morales soft tissue fragments. The formalin is filtered and the specimen is entirely submitted in one cassette. B. Received in formalin labeled "endometrial curettings," is a 4.5 x 3.3 x 0.3 cm aggregate of morales-brown soft tissue fragments admixed with blood-tinged mucous. The formalin is filtered and the specimen is entirely submitted in 2 cassettes. /01/02/2019 [facility]01/02/2019
== END 2019-01-02 12:11 | disposition home or self-care (01) | DRG 743 ==
LOC: FER 17:26 → J8W 20:59
PROVIDERS: ADMIT Internal Medicine; ATTEND Family Medicine
PROC: 30233N1 Transfusion of Nonautologous Red Blood Cells into Peripheral Vein, Percutaneous Approach (ICD-10-PCS; 2018-12-29)
PROC: 0U5B8ZZ Destruction of Endometrium, Via Natural or Artificial Opening Endoscopic (ICD-10-PCS; principal; 2018-12-30 14:00)
PROC: 10D07Z8 Extraction of Products of Conception, Other, Via Natural or Artificial Opening (ICD-10-PCS; 2018-12-30 14:00)
DX: N84.0 Polyp of corpus uteri (principal); D64.9 Anemia, unspecified; I10 Essential (primary) hypertension; N92.1 Excessive and frequent menstruation with irregular cycle
CPT/HCPCS: 36415; 36430; 36511; 71045-TC-FY; 76830-TC; 80048; 80053; 81003; 81015; 82378; 82607; 82728; 82746; 83540; 83550; 83735; 84100; 85025; 85027; 85610; 85730; 86301; 86304; 86850; 86900; 86901; 86922; 87077; 87086; 88305-TC; 93005; 94760; 99285-25; J1439; J7030; P9038; P9058

== ENCOUNTER 2019-02-08 11:17 | Day surgery (SDC) | payer OTHER ==
[~2019-02-08 11:17] MED LIST: FERRIC CARBOXYMALTOSE 750 MG in SODIUM CHLORIDE 250 ML IVPB ONE
[2019-02-08 12:34] VITALS: PULSE 60
[2019-02-08 12:42] VITALS: BP 153/67; TEMP 98.1
== END 2019-02-08 13:16 | disposition home or self-care (01) ==
LOC: JASU-ENDO 11:17
PROVIDERS: ATTEND Family Medicine
PROC: 3E033GC Introduction of Other Therapeutic Substance into Peripheral Vein, Percutaneous Approach (ICD-10-PCS; principal; 2019-02-08)
DX: D50.9 Iron deficiency anemia, unspecified (principal)
CPT/HCPCS: 81025; 96365; J1439

== ENCOUNTER 2019-02-16 10:16 | Day surgery (SDC) | payer OTHER ==
[2019-02-16 11:01] VITALS: TEMP 97.9
[2019-02-16] MEDS ORDERED: FERRIC CARBOXYMALTOSE 750 MG in SODIUM CHLORIDE 250 ML IVPB ONE (12:00)
[2019-02-16 13:40] VITALS: BP 151/94; PULSE 60
== END 2019-02-16 12:35 | disposition home or self-care (01) ==
LOC: JINFUSION 10:16
PROVIDERS: ATTEND Family Medicine
PROC: 3E033GC Introduction of Other Therapeutic Substance into Peripheral Vein, Percutaneous Approach (ICD-10-PCS; principal; 2019-02-16)
DX: D50.9 Iron deficiency anemia, unspecified (principal)
CPT/HCPCS: 96365; J1439

== ENCOUNTER 2019-11-30 15:51 | Emergency (ER) | payer OTHER ==
[2019-11-30] MEDS ORDERED: SODIUM CHLORIDE 0.9% 1000 ML INFUS.BAG IV ONE (15:55)
[2019-11-30 16:09] VITALS: BP 188/107; PULSE 73; TEMP 98.7; BMI 25.7
[2019-11-30 16:50] LABS: BASO % 0.8 % (0-2.0); EOS % 3.1 % (0-4.5); HEMOGLOBIN 13.6 GM/dl (10.7-15.3); LYMPH % 29.3 % (8-40); MCH 30.2 pg (25.7-33.7); MCHC 33.9 g/dl (32.0-36.0); MEAN CELL VOLUME 89.2 fl (80-96); MEAN PLT VOLUME 9.3 fl (7.5-11.1); MONO % 4.9 % (3.8-10.2); NEUT % 61.9 % (42.8-82.8); PLATELET COUNT 240 K/MM3 (134-434); RBC 4.49 M/mm3 (3.60-5.2); RDW 12.2 % (11.6-15.6); WHITE BLOOD COUNT 4.5 K/mm3 (4.0-10.8)
[2019-11-30 16:57] LABS: ALBUMIN 4.6 g/dl (3.4-5.0); BILIRUBIN,TOTAL 0.9 mg/dl (0.2-1); CREATININE 0.6 mg/dl (0.55-1.3); POTASSIUM 4.2 mmol/L (3.5-5.1); TOT PROT 7.6 g/dl (6.4-8.2)
--- NOTE | 2019-11-30 17:06 | PDOC ---
History of Present Illness - General Chief Complaint: Pain Stated Complaint: RLQ ABDOMINAL PAIN X 2 WEEKS Time Seen by Provider: 11/30/19 15:54 History Source: Patient Exam Limitations: No Limitations - History of Present Illness Initial Comments: 11/30/19 17:00 54 yo F with h/o prior cholecystectomy for gallstones h/o kidney stones, here with c/o 1 week intermittent right flank pain, radiating to groin. described as burning. was seen in [place] office, found to have microscopic hematuria. no f/c no dysuria. was seen in urgent care month ago diagnosed with uti. denies vaginal bleeding. no mod factors. normal bm. no pain with bm. no pain with walking. mild nausea associated with pain, no f/c Past History - Medical History Allergies/Adverse Reactions: Allergies Allergy/AdvReac Type Severity Reaction Status Date / Time Penicillins Allergy Intermediate Rash Verified 11/30/19 16:29 adhesive tape Allergy Verified 11/30/19 16:29 Home Medications: Ambulatory Orders Amlodipine Besylate [Norvasc -] 5 mg PO DAILY 12/29/18 Hydrochlorothiazide [Hctz -] 12.5 mg PO DAILY 12/29/18 Anemia: Yes Asthma: No Cancer: No Cardiac Disorders: No CVA: No COPD: No CHF: No Dementia: No Diabetes: No GI Disorders: No Disorders: No HTN: Yes Hypercholesterolemia: No Liver Disease: No Seizures: No Thyroid Disease: No - Surgical History Abdominal Surgery: No Appendectomy: No Cardiac Surgery: No Cholecystectomy: Yes Lung Surgery: No Neurologic Surgery: No Orthopedic Surgery: No - Reproductive History Is Patient Now?: No Dysfunctional Uterine Bleeding: Yes - Psycho-Social/Smoking History Smoking History: Never smoked - Substance Abuse Hx (Audit-C & DAST Scrn) How often the patient has a drink containing alcohol: Never Score: In Men: 4 or > Positive; In Women: 3 or > Positive: 0 Screen Result (Pos requires Nsg. Audit-10AR): Negative In the last yr the pt used illegal drug/Rx for NonMed reason: No Score: Yes response is considered Positive: 0 Screen Result (Positive result requires Nsg. DAST-10): Negative Review of Systems - Review of Systems Constitutional: No: Chills, Fever HEENTM: No: Eye Pain Respiratory: No: Cough, Orthopnea, Shortness of Breath Cardiac (ROS): No: Chest Pain, Edema ABD/GI: Yes: Nausea. No: Diarrhea : Yes: Hematuria. No: Burning, Dysuria, Discharge Musculoskeletal: Yes: Back Pain Integumentary: No: Bruising, Change in Color, Other All Other Systems: Reviewed and Negative *Physical Exam - Vital Signs Last Vital Signs Temp Pulse Resp BP Pulse Ox 98.7 F 73 16 188/107 H 99 11/30/19 15:53 11/30/19 15:53 11/30/19 15:53 11/30/19 15:53 11/30/19 15:53 - Physical Exam 11/30/19 17:01 awake alert lungs clear bilat heart rrr no mrg abd soft mild rlq ttp. no rebound no guarding. no cva tenderness. skin warm and dry. alert oriented x3. ED Treatment Course - LABORATORY CBC & Chemistry Diagram: 11/30/19 16:40 11/30/19 16:08 - ADDITIONAL ORDERS Additional order review: Laboratory Results 11/30/19 11/30/19 16:40 16:08 Sodium 130 L Potassium 4.2 Chloride 95 L Carbon Dioxide 27 Anion Gap 8 BUN 12.0 Creatinine 0.6 Est GFR (CKD-EPI)AfAm 118.93 Est GFR (CKD-EPI)NonAf 102.61 Random Glucose 83 Calcium 9.0 Total Bilirubin 0.9 AST 27 ALT 21 Alkaline Phosphatase 59 Total Protein 7.6 Albumin 4.6 Urine Color Yellow Urine Appearance Clear Urine pH 5.5 Urine Protein Negative Urine Glucose (UA) Negative Urine Ketones Negative Urine Blood 1+ H Urine Nitrite Negative Urine Bilirubin Negative Urine Urobilinogen 0.2 Ur Leukocyte Esterase Negative 11/30/19 16:40 RBC 4.49 MCV 89.2 MCHC 33.9 RDW 12.2 MPV 9.3 Neutrophils % 61.9 Lymphocytes % 29.3 Monocytes % 4.9 Eosinophils % 3.1 Basophils % 0.8 - RADIOLOGY Radiology Studies Ordered: Category Date Time Status ABDOMEN & PELVIS CT WITH CONTR [CT] Stat CT Scan 11/30/19 15:55 Ordered - Medications Given in the ED: ED Medications Discontinued Medications Generic Name Dose Route Start Last Admin Trade Name Freq PRN Reason Stop Dose Admin Sodium Chloride 1,000 ml 11/30/19 15:55 11/30/19 16:40 Normal Saline - IV 11/30/19 15:56 1,000 ml ONCE ONE Administration Medical Decision Making - Medical Decision Making 11/30/19 17:02 pt with right flank pain. differential hematuria. pyelo renal colic, appendicitis. plan labs ua focused ed renal us. focused ed us renal, mild hydro calcifications. noted. will switch ct to spiral ct without contrast. r/o renal colic. 11/30/19 18:55 ct with prominent right renal pelvis, believed to be congential. new left side dilated collecting system. appendix not visualized no signs of appendicitis. left acnexal cyst smaller than previous. biliary tract dilation post cholecystectomoy recommend MRCP outpt. will refer pt to GI. dc home. fu stars specialist. Discharge - Discharge Information Problems reviewed: Yes Clinical Impression/Diagnosis: Abdominal pain Condition: Improved Disposition: HOME - Follow up/Referral Referrals: Praful Aj MD [Staff Physician] - Palomo Albright MD [Primary Care Provider] - Garett Tirado MD [Staff Physician] - Huber Jordan MD [Staff Physician] - - Patient Discharge Instructions Patient Printed Discharge Instructions: Acute Abdominal Pain Additional Instructions: your ct abdomen and pelvis did not identify your appendix in entirety, and is showing no signs of appendicitis. you have chronic dilation of your right kidney pelvis, and new dilation left kidney pelvis. no visualized kidney stone. you should follow up with a urologist however to reevaluate your symptoms. you also were noted to have dilated bile ducts, even though you have had your gallbladder removed. you should follow up with gastroeneterologist see referral information for DR Aj, and call to schedule follow up . if you develop fever, vomiting, worsening symptoms or any concerns you should return. in addition you should follow up with your survey data technician. follow up with your primary doctor.l - Post Discharge Activity
[2019-11-30 18:11] LABS: EPITHELIAL CELLS FEW /hpf
--- OUTSIDE RECORDS SUMMARY | 2019-11-30 21:22 | XMS ---
:1965 [facility] Care [facility] Providers Name Role Phone Natalee, Ammir Unavailable [phone] Natalee, Ammir Unavailable [phone] Natalee, Ammir Unavailable [phone] Natalee, Ammir Unavailable [phone] Natalee, Ammir Unavailable [phone] Natalee, Ammir Unavailable [phone] Natalee, Ammir Unavailable [phone] Natalee, Ammir Unavailable [phone] Natalee, Ammir Unavailable [phone] Natalee, Ammir Unavailable [phone] Natalee, Ammir Unavailable [phone] Natalee, Ammir Unavailable [phone] Natalee, Ammir Unavailable [phone] Natalee, Ammir Unavailable [phone] Natalee, Ammir Unavailable [phone] Natalee, Ammir Unavailable [phone] Re-disclosure Warning The records that you are about to access may contain information from federally- assisted alcohol or drug abuse programs. If such information is present, then the following federally mandated warning applies: This information has been disclosed to you from records protected by federal confidentiality rules (42 CFR part 2). The federal rules prohibit you from making any further disclosure of this information unless further disclosure is expressly permitted by the written consent of the person to whom it pertains or as otherwise permitted by 42 CFR part 2. A general authorization for the release of medical or other information is NOT sufficient for this purpose. The Federal rules restrict any use of the information to criminally investigate or prosecute any alcohol or drug abuse patient.The records that you are about to access may contain highly sensitive health information, the redisclosure of which is protected by Article 27-F of the [facility] Public Health law. If you continue you may haveaccess to information: Regarding HIV / AIDS; Provided by facilities licensed or operated by the [facility] Office of Mental Health; or Provided by the [facility] Office for People With Developmental Disabilities. If such information is present, then the following [facility] mandated warning applies: This information has been disclosed to you from confidential records which are protected by state law. State law prohibits you from making any further disclosure of this information without the specific written consent of the person to whom it pertains, or as otherwise permitted by law. Any unauthorized further disclosure in violation of state law may result in a fine or nursing home sentence or both. A general authorization for the release of medical or other information is NOT sufficient authorization for further disclosure. Allergies and Adverse Reactions Type Description Substance Reaction Status Data Source(s ) Drug allergy PENICILLIN Penicillin Active MED[facility] (Ammi r Natalee Physician) Encounters Encounter Providers Location Date Indications Data Source(s ) Attender: [facility] 11/30/2019 MED[facility] (A mmir Natalee 12:00:00 AM EDT Natalee Ph ysician) [facility]2019 12:00:00 AM E DT [facility] (Ammir Natalee Physician) Office Attender: mir Natalee 11/30/2019 12:00:00 AM E DT MED[facility] (Ammir Natalee Physician) Office Attender: mir Natalee 11/30/2019 12:00:00 AM E DT [facility] (Ammir Natalee Physician) [facility] 11/30/2019 12:00:00 AM E DT [facility] (Ammir Natalee Physician) [facility] 11/30/2019 12:00:00 AM E DT [facility] (Ammir Natalee Physician) Office Medications Medication Brand Start Product Dose Route Administrative Pharmacy [facility] Indications Reaction Description Data Name Date Form Instructions Instructions Source(s) OZEMPIC 08/22/ SOLUTION 1 complet OZEMPIC MEDGEN (0.25 MG OR 2019 ed (0.25 MG OR ( Ammir 0.5 MG 12:00: 0.5 MG DOSE) Rab toño DOSE): AM Physici an) 11 EDT Phentermine PHENTE 08/22/ CAPSULE 30 complet PHE NTERMINE MEDGEN Hydrochlori RMINE: 2019 ed (Ammir de 15 MG [id number] 12:00: Natalee Oral 00 AM Physician) Capsule EDT PHENTERMINE :603109 gabapentin GABAPE 04/03/ CAPSULE 30 complet SARA PENTIN MEDGEN 100 MG Oral NTIN:3 2019 ed (Ammir Capsule 62403 12:00: Natalee GABAPENTIN: 00 AM Physici an) [id number] EST MEDROL 04/03/ TABLET 7 complet MEDROL MEDG EN DOSEPAK:834 2019 ed DOSEPAK (Ammi r 023 12:00: Natalee 00 AM Physician) EST OZEMPIC 03/22/ SOLUTION 1 complet OZEMPIC MEDGEN (0.25 MG OR 2019 ed (0.25 MG OR ( Ammir 0.5 MG 12:00: 0.5 MG DOSE) Rab toño DOSE): AM Physici an) 11 EST Oxycodone OXYCOD 03/22/ TABLET 15 complet OXYCOD ONE MEDGEN Hydrochlori ONE:10 2019 ed (Ammir de 5 MG 67950 12:00: Natalee Oral Tablet 00 AM Physici an) OXYCODONE:1 EST 256804 Cyclobenzap FLEXER 03/22/ TABLET 30 complet FLEX ERIL MEDGEN rine IL:828 2019 ed (Ammir hydrochlori 320 12:00: Natalee de 5 MG 00 AM Physician) Oral Tablet EST FLEXERIL:82 8320 ferrous FEOSOL 01/06/ TABLET 60 complet FEOSOL M EDGEN sulfate 325 :84850 2018 ed (Ammir MG Oral 0 12:00: Natalee Tablet 00 AM Physician) [Feosol] EST FEOSOL:6359 70 Hydrochloro HYDROC 08/11/ CAPSULE 90 complet HYD ROCHLOROT MEDGEN thiazide HLOROT 2019 ed HIAZIDE (Ammir 12.5 MG HIAZID 12:00: Natalee Oral E:1998 00 AM Physician) Capsule 03 EDT HYDROCHLORO THIAZIDE:19 9903 OZEMPIC 08/11/ SOLUTION 1 complet OZEMPIC MEDGEN (0.25 MG OR 2019 ed (0.25 MG OR ( Ammir 0.5 MG 12:00: 0.5 MG DOSE) Rab toño DOSE):69864 00 AM Physici an) 11 EDT Amlodipine AMLODI 08/11/ TABLET 90 complet AMLOD IPINE MEDGEN 5 MG Oral PINE 2018 ed BESYLATE (Ammir Tablet BESYLA 12:00: Natalee AMLODIPINE TE:197 00 AM Physic tina) BESYLATE:19 361 EDT 7361 VOLTAREN 4 complet VOLTAREN ME DGEN TRANSDERMAL 2018 ed TRANSDERMAL ( Ammir GEL: 12:00: GEL Natalee 00 AM Physician) EDT meloxicam MOBIC: 07/11/ TABLET 30 complet MOBIC MEDGEN 7.5 MG Oral [id number] 4315 ed (Ammir Tablet 12:00: Natalee MOBIC:07383 00 AM Physici an) 6 EDT Insurance Providers Payer name Policy type Policy ID Covered Covered green party's Policy P emily / Coverage green party ID relationship to [employer] ormation type [employer] [facility] [id number] [facility] [id number] [phone] [id number] [facility] Problems, Conditions, and Diagnoses Code Display Name Description Problem Type Effective Dates Data Source(s) R68.83 Chills (without CHILLS (WITHOUT Problem 11/30/2019 MEDG EN (Ammir fever) FEVER) 12:00:00 AM EDT Natalee Physician) R31.9 Hematuria, HEMATURIA, Problem 11/30/2019 MED[facility] (Ammir unspecified UNSPECIFIED 12:00:00 AM EDT Natalee Physician) R30.9 Painful PAINFUL Problem 11/30/2019 MED[facility] (Ammir micturition, MICTURITION, 12:00:00 AM EDT Brian i unspecified UNSPECIFIED Physician) R14.0 Abdominal ABDOMINAL Problem 11/30/2019 MEDGEN (Ammir distension DISTENSION 12:00:00 AM EDT Natalee (gaseous) (GASEOUS) Physician) Z71.3 Dietary counseling DIETARY COUNSELING Problem 0 MEDGEN (Ammir and surveillance AND SURVEILLANCE 12:00:00 AM E DT Natalee Physician) R79.89 Other specified OTHER SPECIFIED Problem 08/23/2019 MEDG EN (Ammir abnormal findings ABNORMAL FINDINGS 12:00:00 AM EDT Natalee of blood chemistry OF BLOOD CHEMISTRY Physician) R53.83 Other fatigue OTHER FATIGUE Problem 12/29/2018 MEDGEN ( Ammir 12:00:00 AM EDT Natalee Physician) R53.1 Weakness WEAKNESS Problem 12/29/2018 MEDGEN (Ammir 12:00:00 AM EDT Natalee Physician) K59.00 Constipation, CONSTIPATION, Problem 12/29/2018 MEDGEN ( Ammir unspecified UNSPECIFIED 12:00:00 AM EDT Natalee Physician) Z09 Encounter for ENCOUNTER FOR Problem 12/29/2018 MED[facility] ( Ammir follow-up FOLLOW-UP 12:00:00 AM EDT Natalee examination after EXAMINATION AFTER Physician) completed COMPLETED treatment for TREATMENT FOR conditions other CONDITIONS OTHER than malignant THAN MALIGNANT neoplasm NEOPLASM D50.9 Iron deficiency IRON DEFICIENCY Problem 09/08/2018 MEDG EN (Ammir anemia, ANEMIA, 12:00:00 AM EDT Natalee unspecified UNSPECIFIED Physician) E66.9 Obesity, OBESITY, Problem 08/11/2018 MEDGEN (Ammir unspecified UNSPECIFIED 12:00:00 AM EDT Natalee Physician) M71.21 Synovial cyst of SYNOVIAL CYST OF Problem 07/28/2018 ME DGEN (Ammir popliteal space POPLITEAL SPACE 12:00:00 AM EDT Natalee [Major], right [MAJOR], RIGHT Physic tina) knee KNEE Z86.2 Personal history PERSONAL HISTORY Problem 07/11/2018 ME DGEN (Ammir of diseases of the OF DISEASES OF THE 12:00:00 AM EDT Natalee blood and BLOOD AND Physician) blood-forming BLOOD-FORMING organs and certain ORGANS AND CERTAIN disorders DISORDERS involving the INVOLVING THE immune mechanism IMMUNE MECHANISM M54.5 Low back pain LOW BACK PAIN Problem 07/11/2018 MED[facility] ( Ammir 12:00:00 AM EDT Natalee Physician) M48.07 Spinal stenosis, SPINAL STENOSIS, Problem 07/11/2018 ME DGEN (Ammir lumbosacral region LUMBOSACRAL REGION 12:00:00 AM EDT Natalee Physician) R10.84 Generalized GENERALIZED Problem 07/11/2018 MEDGEN (Ammi r abdominal pain ABDOMINAL PAIN 12:00:00 AM EDT R cristhian Physician) M19.90 Unspecified UNSPECIFIED Problem 07/11/2018 MEDGEN (Ammi r osteoarthritis, OSTEOARTHRITIS, 12:00:00 AM EDT Natalee unspecified site UNSPECIFIED SITE Ph ysician) I10 Essential ESSENTIAL Problem 07/11/2018 MEDGEN (Ammir (primary) (PRIMARY) 12:00:00 AM EDT Natalee hypertension HYPERTENSION Physician) Z00.01 Encounter for ENCOUNTER FOR Problem 07/11/2018 MEDGEN ( Ammir general adult GENERAL ADULT 12:00:00 AM EDT Rab toño medical MEDICAL Physician) examination with EXAMINATION WITH abnormal findings ABNORMAL FINDINGS R06.00 Dyspnea, DYSPNEA, Problem 07/11/2018 MEDGEN (Ammir unspecified UNSPECIFIED 12:00:00 AM EDT Natalee Physician) Surgeries/Procedures Procedure Description Date Indications Data Source(s) Documentation of current 11/30/2019 MED GEN (Ammir Natalee medications (procedure) 12:00:00 AM EDT P hysician) Documentation of current 11/30/2019 MED GEN (Ammir Natalee medications (procedure) 12:00:00 AM EDT P hysician) Nutrition education, 08/23/2019 MEDGEN (Ammir Natalee guidance, and counseling 12:00:00 AM EDT Physician) (procedure) Documentation of current 02/02/2019 MED GEN (Ammir Natalee medications (procedure) 12:00:00 AM EST P hysician) Documentation of current 02/02/2019 MED GEN (Ammir Natalee medications (procedure) 12:00:00 AM EST P hysician) Documentation of current 09/08/2018 MED GEN (Ammir Natalee medications (procedure) 12:00:00 AM EDT P hysician) Documentation of current 09/08/2018 MED GEN (Ammir Natalee medications (procedure) 12:00:00 AM EDT P hysician) Documentation of current 09/08/2018 MED GEN (Ammir Antalee medications (procedure) 12:00:00 AM EDT P hysician) Mammogram (procedure) 07/21/2018 MEDGEN (Ammir Natalee 12:00:00 AM EDT Physician) Documentation of current 07/11/2018 MED GEN (Ammir Natalee medications (procedure) 12:00:00 AM EDT P hysician) Documentation of current 07/11/2018 MED GEN (Ammir Natalee medications (procedure) 12:00:00 AM EDT P hysician) Documentation of current 07/11/2018 MED GEN (Ammir Natalee medications (procedure) 12:00:00 AM EDT P hysician) Documentation of current 07/11/2018 MED GEN (Ammir Natalee medications (procedure) 12:00:00 AM EDT P hysician) Documentation of current 07/11/2018 MED GEN (Ammir Natalee medications (procedure) 12:00:00 AM EDT P hysician) Medication Reconciliation 07/11/2018 ME DGEN (Ammir Natalee (procedure) 12:00:00 AM EDT Physician) Results ID Date Data Source [id number] 08/24/2019 12:00:00 AM EDT MED[facility] (Ammir Natalee Physician) Name Value Range Interpretation Description Data Sup porting Code Source(s) Document(s ) Ferritin 326.4 Above high normal MEDGEN (Ammi r [Interpretat ng/mL Natalee ion] in Physician) Blood ID Date Data Source [id number] 08/24/2019 12:00:00 AM EDT [facility] (Ammir Natalee Physician) Name Value Range Interpretation Description Data Sup porting Code Source(s) Document(s ) Transferrin 205 mg/dL Normal (applies MEDGEN [Mass/time] in to non-numeric (Ammir 24 hour Urine results) Natalee Physician) TIBC 287.5 Normal (applies MEDGEN ug/dL to non-numeric (Ammir results) Natalee Physician) UIBC 215.5 Normal (applies MEDGEN ug/dL to non-numeric (Ammir results) Natalee Physician) %SATURATION 25.0 % Normal (applies MEDGEN to non-numeric (Ammir results) Natalee Physician) ID Date Data Source [id number] 08/24/2019 12:00:00 AM EDT MEDGEN (Ammir Natalee Physician) Name Value Range Interpretation Description Data Sup porting Code Source(s) Document(s ) HEPATITIS C NONREACTIVE Normal (applies MEDGEN AB QL to non-numeric (Ammir results) Natalee Physician) ID Date Data Source [id number] 08/24/2019 12:00:00 AM EDT MEDGEN (Ammir Natalee Physician) Name Value Range Interpretation Description Data Sup porting Code Source(s) Document(s ) HEPATITIS BS NONREACTIVE Normal (applies MEDGEN AG SCREEN to non-numeric (Ammir results) Natalee Physician) ID Date Data Source [id number] 08/24/2019 12:00:00 AM EDT MEDGEN (Ammir Natalee Physician) Name Value Range Interpretation Description Data Sup porting Code Source(s) Document(s ) HEPATITIS B 69.73 Normal (applies to MEDGEN (A mmir SURFACE AB (REACTIVE non-numeric Natalee ) results) Physician) ID Date Data Source [id number] 08/24/2019 12:00:00 AM EDT MEDGEN (Ammir Natalee Physician) Name Value Range Interpretation Description Data Sup porting Code Source(s) Document(s ) HEPATITIS A NONREACTIVE Normal (applies MEDGEN AB to non-numeric (Ammir results) Natalee Physician) ID Date Data Source [id number] 08/24/2019 12:00:00 AM EDT MEDGEN (Ammir Natalee Physician) Name Value Range Interpretation Description Data Sup porting Code Source(s) Document(s ) Ceruloplasmin 33 Normal (applies to MEDGEN [Moles/volume] in non-numeric (Ammir Cerebral spinal results) Natalee fluid Physician) ID Date Data Source [id number] 08/24/2019 12:00:00 AM EDT MEDGEN (Ammir Natalee Physician) Name Value Range Interpretation Code Description Data Supporting Source(s) Document(s ) ALPHA FETO 1.7 ng/mL Normal (applies to MEDGEN (Am pam PROTEIN, non-numeric Natalee TUMOR results) Physician) ID Date Data Source [id number] 08/24/2019 12:00:00 AM EDT MEDGEN (Ammir Natalee Physician) Name Value Range Interpretation Description Data Sup porting Code Source(s) Document(s ) CANCER 9.5 U/mL Normal (applies to MEDGEN (Amm ir ANTIGEN 19-9 non-numeric Natalee results) Physician) ID Date Data Source [id number] 08/24/2019 12:00:00 AM EDT MEDGEN (Ammir Natalee Physician) Name Value Range Interpretation Code Description Data Patria rce(s) Supporting Document(s ) CEA <0.5 Normal (applies to MEDGEN (Amm ir non-numeric results) Natalee Physician) ID Date Data Source [id number] 08/24/2019 12:00:00 AM EDT MEDGEN (Ammir Natalee Physician) Name Value Range Interpretation Code Description Data Patria rce(s) Supporting Document(s ) IRON, 72 ug/dL Normal (applies to MEDGEN (Amm ir TOTAL non-numeric Natalee results) Physician) ID Date Data Source [id number] 08/24/2019 12:00:00 AM EDT MEDGEN (Ammir Natalee Physician) Name Value Range Interpretation Description Data Sup porting Code Source(s) Document(s ) WBC 3.9 Below low normal MEDGEN 10(3)/uL (Ammir Natalee Physician) RBC 4.4 Normal (applies MEDGEN 10(6)/uL to non-numeric (Ammir results) Natalee Physician) Hemoglobin 13.3 g/dL Normal (applies MEDGEN [Mass/volume] to non-numeric (Ammir in Mixed venous results) Natalee blood by Physician) Oximetry Hematocrit 39.1 % Normal (applies MEDGEN [Pure volume to non-numeric (Ammir fraction] of results) Natalee Blood by Physician) Automated count MCV 89.5 fL Normal (applies MEDGEN to non-numeric (Ammir results) Natalee Physician) MCH 30 pg Normal (applies MEDGEN to non-numeric (Ammir results) [place] Physician) RDWSD 38.8 fL Normal (applies MEDGEN to non-numeric (Ammir results) Natalee Physician) MCHC 34 g/dL Normal (applies MEDGEN to non-numeric (Ammir results) Natalee Physician) RDWCV 11.8 % Normal (applies MEDGEN to non-numeric (Ammir results) Natalee Physician) MPV 11.5 fL Normal (applies MEDGEN to non-numeric (Ammir results) Natalee Physician) Platelet Count 212 Normal (applies MEDGEN 10(3)/uL to non-numeric (Ammir results) Natalee Physician) Neutrophil Abs 2.23 Normal (applies MEDGEN 10(3)/uL to non-numeric (Ammir results) Natalee Physician) Lymphocyte Abs 1.20 Normal (applies MEDGEN 10(3)/uL to non-numeric (Ammir results) Natalee Physician) Eosinophil Abs 0.15 Normal (applies MEDGEN 10(3)/uL to non-numeric (Ammir results) Natalee Physician) Monocyte Abs 0.31 Normal (applies MEDGEN 10(3)/uL to non-numeric (Ammir results) Natalee Physician) Basophil Abs 0.03 Normal (applies MEDGEN 10(3)/uL to non-numeric (Ammir results) Natalee Physician) Neutrophil % 56.90 % Normal (applies MEDGEN to non-numeric (Ammir results) Natalee Physician) Immature 0.02 Normal (applies MEDGEN Granulocyte Abs 10(3)/uL to non-numeric (Ammir results) Natalee Physician) Lymphocyte % 31 % Normal (applies MEDGEN to non-numeric (Ammir results) Natalee Physician) Eosinophil % 3.8 % Normal (applies MEDGEN to non-numeric (Ammir results) Natalee Physician) Monocyte % 7.9 % Normal (applies MEDGEN to non-numeric (Ammir results) Natalee Physician) Basophil % 0.8 % Normal (applies MEDGEN to non-numeric (Ammir results) Natalee Physician) Immature 0.50 % Normal (applies MEDGEN Granulocyte % to non-numeric (Ammir results) Natalee Physician) NRBC % 0.0 % Normal (applies MEDGEN to non-numeric (Ammir results) Natalee Physician) NRBC Abs 0.00 Normal (applies MEDGEN 10(3)/uL to non-numeric (Ammir results) Natalee Physician) ID Date Data Source [id number] 08/24/2019 12:00:00 AM EDT MEDGEN (Ammir Natalee Physician) Name Value Range Interpretation Description Data Sup porting Code Source(s) Document(s ) GLUCOSE 96 mg/dL Normal (applies MEDGEN NONFASTING,SERUM to non-numeric (Ammir results) Natalee Physician) SODIUM, SERUM 138 Normal (applies MEDGEN mEq/L to non-numeric (Ammir results) Natalee Physician) POTASSIUM, SERUM 3.8 Normal (applies MEDGEN mEq/L to non-numeric (Ammir results) Natalee Physician) CHLORIDE, SERUM 101 Normal (applies MEDGEN mEq/L to non-numeric (Ammir results) Natalee Physician) Carbon dioxide 33 mEq/L Normal (applies MEDGEN [VFr/PPres] in to non-numeric (Ammir Gas delivery results) Natalee system Physician) Anion gap in 7.8 Normal (applies MEDGEN Body fluid mEq/L to non-numeric (Ammir results) Natalee Physician) BLOOD UREA 12 mg/dL Normal (applies MEDGEN NITROGEN to non-numeric (Ammir results) Natalee Physician) CREATININE, 0.60 Normal (applies MEDGEN SERUM mg/dL to non-numeric (Ammir results) Natalee Physician) CALCIUM, SERUM 9.7 Normal (applies MEDGEN mg/dL to non-numeric (Ammir results) Natalee Physician) TOTAL PROTEIN 7.4 g/dL Normal (applies MEDGEN to non-numeric (Ammir results) Natalee Physician) Globulin 2.9 gldl Normal (applies MEDGEN [Mass/time] in to non-numeric (Ammir 24 hour Urine results) Natalee Physician) Microalbumin 4.5 g/dL Normal (applies MEDGEN [Mass/time] in to non-numeric (Ammir Urine collected results) Natalee for unspecified Physician) duration A/G RATIO 1.55 Normal (applies MEDGEN g/dl to non-numeric (Ammir results) Natalee Physician) ALKALINE 66 U/L Normal (applies MEDGEN PHOSPHATASE, ALP to non-numeric (Ammir results) Natalee Physician) BILIRUBIN, TOTAL 0.7 Normal (applies MEDGEN mg/dL to non-numeric (Ammir results) Natalee Physician) ALT (SGPT) 27 U/L Normal (applies MEDGEN to non-numeric (Ammir results) Natalee Physician) AST 25 U/L Normal (applies MEDGEN to non-numeric (Ammir results) Natalee Physician) EGFR NON AFR 111 Normal (applies MEDGEN [facility] [facility] mL/min/1 to non-numeric (Ammir .73m2 results) Natalee Physician) EGFR AFR 134 Normal (applies MEDGEN [place] mL/min/1 to non-numeric (Ammir .73m2 results) Natalee Physician) ID Date Data Source [id number] 03/22/2019 12:00:00 AM EST MEDGEN (Ammir Natalee Physician) Name Value Range Interpretation Description Data Sup porting Code Source(s) Document(s ) Ferritin 515.4 Above high normal MEDGEN (Ammi r [Interpretat ng/mL Natalee ion] in Physician) Blood ID Date Data Source [id number] 03/22/2019 12:00:00 AM EST MEDGEN (Ammir Natalee Physician) Name Value Range Interpretation Description Data Sup porting Code Source(s) Document(s ) Transferrin 206 mg/dL Normal (applies MEDGEN [Mass/time] in to non-numeric (Ammir 24 hour Urine results) Natalee Physician) TIBC 288.9 Normal (applies MEDGEN ug/dL to non-numeric (Ammir results) Natalee Physician) UIBC 171.9 Normal (applies MEDGEN ug/dL to non-numeric (Ammir results) Natalee Physician) %SATURATION 40.5 % Normal (applies MEDGEN to non-numeric (Ammir results) Natalee Physician) ID Date Data Source [id number] 03/22/2019 12:00:00 AM EST MEDGEN (Ammir Natalee Physician) Name Value Range Interpretation Code Description Data Supporting Source(s) Document(s ) IRON, 117 ug/dL Normal (applies to MEDGEN (Amm ir TOTAL non-numeric Natalee results) Physician) ID Date Data Source [id number] 03/22/2019 12:00:00 AM EST MEDGEN (Ammir Natalee Physician) Name Value Range Interpretation Description Data Sup porting Code Source(s) Document(s ) WBC 4.1 Normal (applies MEDGEN 10(3)/uL to non-numeric (Ammir results) Natalee Physician) RBC 4.6 Normal (applies MEDGEN 10(6)/uL to non-numeric (Ammir results) Natalee Physician) Hemoglobin 13.8 g/dL Normal (applies MEDGEN [Mass/volume] to non-numeric (Ammir in Mixed venous results) Natalee blood by Physician) Oximetry Hematocrit 39.7 % Normal (applies MEDGEN [Pure volume to non-numeric (Ammir fraction] of results) Natalee Blood by Physician) Automated count MCV 87.3 fL Normal (applies MEDGEN to non-numeric (Ammir results) Natalee Physician) MCH 30 pg Normal (applies MEDGEN to non-numeric (Ammir results) Natalee Physician) RDWSD 40.3 fL Normal (applies MEDGEN to non-numeric (Ammir results) Natalee Physician) MCHC 35 g/dL Normal (applies MEDGEN to non-numeric (Ammir results) Natalee Physician) RDWCV 13.0 % Normal (applies MEDGEN to non-numeric (Ammir results) Natalee Physician) MPV 11.6 fL Normal (applies MEDGEN to non-numeric (Ammir results) Natalee Physician) Platelet Count 211 Normal (applies MEDGEN 10(3)/uL to non-numeric (Ammir results) Natalee Physician) Neutrophil Abs 2.41 Normal (applies MEDGEN 10(3)/uL to non-numeric (Ammir results) Natalee Physician) Lymphocyte Abs 1.18 Normal (applies MEDGEN 10(3)/uL to non-numeric (Ammir results) Natalee Physician) Monocyte Abs 0.35 Normal (applies MEDGEN 10(3)/uL to non-numeric (Ammir results) Natalee Physician) Eosinophil Abs 0.10 Normal (applies MEDGEN 10(3)/uL to non-numeric (Ammir results) Natalee Physician) Immature 0.01 Normal (applies MEDGEN Granulocyte Abs 10(3)/uL to non-numeric (Ammir results) Natalee Physician) Basophil Abs 0.05 Normal (applies MEDGEN 10(3)/uL to non-numeric (Ammir results) Natalee Physician) Lymphocyte % 29 % Normal (applies MEDGEN to non-numeric (Ammir results) Natalee Physician) Neutrophil % 58.90 % Normal (applies MEDGEN to non-numeric (Ammir results) Natalee Physician) Monocyte % 8.6 % Normal (applies MEDGEN to non-numeric (Ammir results) Natalee Physician) Basophil % 1.2 % Normal (applies MEDGEN to non-numeric (Ammir results) Natalee Physician) Eosinophil % 2.4 % Normal (applies MEDGEN to non-numeric (Ammir results) Natalee Physician) Immature 0.20 % Normal (applies MEDGEN Granulocyte % to non-numeric (Ammir results) Natalee Physician) NRBC % 0.0 % Normal (applies MEDGEN to non-numeric (Ammir results) Natalee Physician) NRBC Abs 0.00 Normal (applies MEDGEN 10(3)/uL to non-numeric (Ammir results) Natalee Physician) ID Date Data Source [id number] 03/22/2019 12:00:00 AM EST MED[facility] (Ammir Natalee Physician) Name Value Range Interpretation Description Data Sup porting Code Source(s) Document(s ) SODIUM, SERUM 134 Normal (applies MEDGEN mEq/L to non-numeric (Ammir results) Natalee Physician) GLUCOSE 81 mg/dL Normal (applies MEDGEN NONFASTING,SERUM to non-numeric (Ammir results) Natalee Physician) POTASSIUM, SERUM 4.1 Normal (applies MEDGEN mEq/L to non-numeric (Ammir results) Natalee Physician) CHLORIDE, SERUM 98 mEq/L Below low normal MEDGEN (Ammir Natalee Physician) Carbon dioxide 30 mEq/L Normal (applies MEDGEN [VFr/PPres] in to non-numeric (Ammir Gas delivery results) Natalee system Physician) Anion gap in 10 mEq/L Normal (applies MEDGEN Body fluid to non-numeric (Ammir results) Natalee Physician) CREATININE, 0.60 Normal (applies [facility] SERUM mg/dL to non-numeric (Ammir results) Natalee Physician) BLOOD UREA 15 mg/dL Normal (applies [facility] NITROGEN to non-numeric (Ammir results) Natalee Physician) CALCIUM, SERUM 9.6 Normal (applies [facility] mg/dL to non-numeric (Ammir results) Natalee Physician) TOTAL PROTEIN 7.2 g/dL Normal (applies [facility] to non-numeric (Ammir results) Natalee Physician) Microalbumin 4.7 g/dL Normal (applies [facility] [Mass/time] in to non-numeric (Ammir Urine collected results) Natalee for unspecified Physician) duration Globulin 2.5 gldl Normal (applies [facility] [Mass/time] in to non-numeric (Ammir 24 hour Urine results) Natalee Physician) A/G RATIO 1.88 Normal (applies [facility] g/dl to non-numeric (Ammir results) Natalee Physician) BILIRUBIN, TOTAL 0.6 Normal (applies [facility] mg/dL to non-numeric (Ammir results) Natalee Physician) ALKALINE 72 U/L Normal (applies [facility] PHOSPHATASE, ALP to non-numeric (Ammir results) Natalee Physician) ALT (SGPT) 46 U/L Normal (applies [facility] to non-numeric (Ammir results) Natalee Physician) AST 30 U/L Normal (applies [facility] to non-numeric (Ammir results) Natalee Physician) EGFR NON AFR 111 Normal (applies [facility] mL/min/1 to non-numeric (Ammir .73m2 results) Natalee Physician) EGFR AFR 134 Normal (applies [facility] mL/min/1 to non-numeric (Ammir .73m2 results) Natalee Physician) ID Date Data Source [id number] 01/20/2019 12:00:00 AM EST [facility] (Ammir Natalee Physician) Name Value Range Interpretation Description Data Sup porting Code Source(s) Document(s ) Ferritin 144 ng/mL Normal (applies to [facility] (Amm ir [Interpretat non-numeric Natalee ion] in results) Physician) Blood ID Date Data Source [id number] 01/20/2019 12:00:00 AM EST [facility] (Ammir Natalee Physician) Name Value Range Interpretation Description Data Sup porting Code Source(s) Document(s ) Transferrin 237 mg/dL Normal (applies [facility] [Mass/time] in to non-numeric (Ammir 24 hour Urine results) Natalee Physician) TIBC 332.3 Normal (applies [facility] ug/dL to non-numeric (Ammir results) Natalee Physician) UIBC 276.3 Normal (applies [facility] ug/dL to non-numeric (Ammir results) Natalee Physician) %SATURATION 16.9 % Normal (applies [facility] to non-numeric (Ammir results) Natalee Physician) ID Date Data Source [id number] 01/20/2019 12:00:00 AM EST [facility] (Ammir Natalee Physician) Name Value Range Interpretation Code Description Data Patria rce(s) Supporting Document(s ) IRON, 56 ug/dL Normal (applies to [facility] (Amm ir TOTAL non-numeric Natalee results) Physician) ID Date Data Source [id number] 01/20/2019 12:00:00 AM EST [facility] (Ammir Natalee Physician) Name Value Range Interpretation Description Data Sup porting Code Source(s) Document(s ) WBC 3.8 Below low normal [facility] 10(3)/uL (Ammir Natalee Physician) RBC 3.1 Below low normal [facility] 10(6)/uL (Ammir Natalee Physician) Hemoglobin 9.1 g/dL Below low normal [facility] [Mass/volume] (Ammir in Mixed venous Natalee blood by Physician) Oximetry Hematocrit 27.9 % Below low normal [facility] [Pure volume (Ammir fraction] of Natalee Blood by Physician) Automated count MCV 90.6 fL Normal (applies [facility] to non-numeric (Ammir results) Natalee Physician) MCH 30 pg Normal (applies [facility] to non-numeric (Ammir results) Natalee Physician) MCHC 33 g/dL Normal (applies [facility] to non-numeric (Ammir results) Natalee Physician) RDWSD 51.6 fL Above high normal [facility] (Ammir Natalee Physician) RDWCV 15.8 % Above high normal [facility] (Ammir Natalee Physician) Platelet Count 238 Normal (applies [facility] 10(3)/uL to non-numeric (Ammir results) Natalee Physician) Neutrophil Abs 2.35 Normal (applies [facility] 10(3)/uL to non-numeric (Ammir results) Natalee Physician) MPV 11.4 fL Normal (applies [facility] to non-numeric (Ammir results) Natalee Physician) Lymphocyte Abs 1.05 Normal (applies [facility] 10(3)/uL to non-numeric (Ammir results) Natalee Physician) Monocyte Abs 0.25 Normal (applies [facility] 10(3)/uL to non-numeric (Ammir results) Natalee Physician) Basophil Abs 0.04 Normal (applies [facility] 10(3)/uL to non-numeric (Ammir results) Natalee Physician) Eosinophil Abs 0.11 Normal (applies [facility] 10(3)/uL to non-numeric (Ammir results) Natalee Physician) Immature 0.01 Normal (applies [facility] Granulocyte Abs 10(3)/uL to non-numeric (Ammir results) Natalee Physician) Lymphocyte % 28 % Normal (applies [facility] to non-numeric (Ammir results) Natalee Physician) Neutrophil % 61.60 % Normal (applies [facility] to non-numeric (Ammir results) Natalee Physician) Monocyte % 6.6 % Normal (applies [facility] to non-numeric (Ammir results) Natalee Physician) Eosinophil % 2.9 % Normal (applies [facility] to non-numeric (Ammir results) Natalee Physician) Immature 0.30 % Normal (applies [facility] Granulocyte % to non-numeric (Ammir results) Natalee Physician) Basophil % 1.0 % Normal (applies [facility] to non-numeric (Ammir results) Natalee Physician) NRBC % 0.0 % Normal (applies [facility] to non-numeric (Ammir results) [place] Physician) NRBC Abs 0.00 Normal (applies [facility] 10(3)/uL to non-numeric (Ammir results) Natalee Physician) ID Date Data Source [id number] 01/04/2019 12:00:00 AM EST [facility] (Ammir Natalee Physician) Name Value Range Interpretation Description Data Sup porting Code Source(s) Document(s ) WBC 4.6 Normal (applies [facility] 10(3)/uL to non-numeric (Ammir results) Natalee Physician) RBC 3.5 Below low normal [facility] 10(6)/uL (Ammir Natalee Physician) Hematocrit 29.5 % Below low normal [facility] [Pure volume (Ammir fraction] of Natalee Blood by Physician) Automated count Hemoglobin 9.5 g/dL Below low normal [facility] [Mass/volume] (Ammir in Mixed venous Natalee blood by Physician) Oximetry MCV 85.3 fL Normal (applies [facility] to non-numeric (Ammir results) Natalee Physician) MCH 28 pg Normal (applies [facility] to non-numeric (Ammir results) Natalee Physician) MCHC 32 g/dL Normal (applies [facility] to non-numeric (Ammir results) Natalee Physician) RDWSD 43.3 fL Normal (applies [facility] to non-numeric (Ammir results) Natalee Physician) Platelet Count 233 Normal (applies [facility] 10(3)/uL to non-numeric (Ammir results) Natalee Physician) RDWCV 14.0 % Normal (applies [facility] to non-numeric (Ammir results) Natalee Physician) MPV 11.3 fL Normal (applies [facility] to non-numeric (Ammir results) Natalee Physician) Neutrophil Abs 3.50 Normal (applies [facility] 10(3)/uL to non-numeric (Ammir results) Natalee Physician) Lymphocyte Abs 0.61 Normal (applies [facility] 10(3)/uL to non-numeric (Ammir results) Natalee Physician) Monocyte Abs 0.30 Normal (applies [facility] 10(3)/uL to non-numeric (Ammir results) Natalee Physician) Eosinophil Abs 0.16 Normal (applies [facility] 10(3)/uL to non-numeric (Ammir results) Natalee Physician) Basophil Abs 0.02 Normal (applies [facility] 10(3)/uL to non-numeric (Ammir results) Natalee Physician) Immature 0.02 Normal (applies [facility] Granulocyte Abs 10(3)/uL to non-numeric (Ammir results) Natalee Physician) Lymphocyte % 13 % Below low normal [facility] (Ammir Natalee Physician) Neutrophil % 76.00 % Above high normal [facility] (Ammir Natalee Physician) Monocyte % 6.5 % Normal (applies [facility] to non-numeric (Ammir results) Natalee Physician) Eosinophil % 3.5 % Normal (applies [facility] to non-numeric (Ammir results) Natalee Physician) Basophil % 0.4 % Normal (applies [facility] to non-numeric (Ammir results) Natalee Physician) Immature 0.40 % Normal (applies [facility] Granulocyte % to non-numeric (Ammir results) Natalee Physician) NRBC % 0.0 % Normal (applies [facility] to non-numeric (Ammir results) Natalee Physician) NRBC Abs 0.00 Normal (applies [facility] 10(3)/uL to non-numeric (Ammir results) Natalee Physician) ID Date Data Source [id number] 01/04/2019 12:00:00 AM EST [facility] (Ammir Natalee Physician) Name Value Range Interpretation Description Data Sup porting Code Source(s) Document(s ) GLUCOSE 139 Above high normal [facility] NONFASTING,SERUM mg/dL (Ammir Natalee Physician) SODIUM, SERUM 137 Normal (applies [facility] mEq/L to non-numeric (Ammir results) Natalee Physician) POTASSIUM, SERUM 3.8 Normal (applies [facility] mEq/L to non-numeric (Ammir results) Natalee Physician) CHLORIDE, SERUM 105 Normal (applies [facility] mEq/L to non-numeric (Ammir results) Natalee Physician) Carbon dioxide 25 mEq/L Normal (applies [facility] [VFr/PPres] in to non-numeric (Ammir Gas delivery results) Natalee system Physician) Anion gap in 10.8 Normal (applies [facility] Body fluid mEq/L to non-numeric (Ammir results) Natalee Physician) BLOOD UREA 13 mg/dL Normal (applies [facility] NITROGEN to non-numeric (Ammir results) Natalee Physician) CREATININE, 0.60 Normal (applies [facility] SER[facility] mg/dL to non-numeric (Ammir results) Natalee Physician) CALCIUM, SERUM 9.2 Normal (applies [facility] mg/dL to non-numeric (Ammir results) Natalee Physician) TOTAL PROTEIN 6.5 g/dL Normal (applies [facility] to non-numeric (Ammir results) Natalee Physician) Microalbumin 4.1 g/dL Normal (applies [facility] [Mass/time] in to non-numeric (Ammir Urine collected results) Natalee for unspecified Physician) duration Globulin 2.4 gldl Normal (applies [facility] [Mass/time] in to non-numeric (Ammir 24 hour Urine results) Natalee Physician) A/G RATIO 1.71 Normal (applies [facility] g/dl to non-numeric (Ammir results) Natalee Physician) BILIRUBIN, TOTAL 0.6 Normal (applies [facility] mg/dL to non-numeric (Ammir results) Natalee Physician) ALKALINE 47 U/L Normal (applies [facility] PHOSPHATASE, ALP to non-numeric (Ammir results) Natalee Physician) ALT (SGPT) 15 U/L Normal (applies [facility] to non-numeric (Ammir results) Natalee Physician) AST 19 U/L Normal (applies [facility] to non-numeric (Ammir results) Natalee Physician) EGFR NON AFR 111 Normal (applies [facility] mL/min/1 to non-numeric (Ammir .73m2 results) Natalee Physician) EGFR AFR 134 Normal (applies [facility] mL/min/1 to non-numeric (Ammir .73m2 results) Natalee Physician) ID Date Data Source [id number] 09/08/2018 12:00:00 AM EDT [facility] (Ammir Natalee Physician) Name Value Range Interpretation Description Data Sup porting Code Source(s) Document(s ) GLUCOSE 83 mg/dL Normal (applies [facility] NONFASTING,SERUM to non-numeric (Ammir results) Natalee Physician) SODIUM, SERUM 132 Normal (applies [facility] mEq/L to non-numeric (Ammir results) Natalee Physician) POTASSIUM, SERUM 3.9 Normal (applies [facility] mEq/L to non-numeric (Ammir results) Natalee Physician) CHLORIDE, SERUM 96 mEq/L Below low normal [facility] (Ammir Natalee Physician) Carbon dioxide 32 mEq/L Normal (applies [facility] [VFr/PPres] in to non-numeric (Ammir Gas delivery results) Natalee system Physician) Anion gap in 7.9 Normal (applies [facility] Body fluid mEq/L to non-numeric (Ammir results) Natalee Physician) BLOOD UREA 14 mg/dL Normal (applies [facility] NITROGEN to non-numeric (Ammir results) Natalee Physician) CREATININE, 0.70 Normal (applies [facility] SER[facility] mg/dL to non-numeric (Ammir results) Natalee Physician) CALCIUM, SERUM 9.8 Normal (applies [facility] mg/dL to non-numeric (Ammir results) Natalee Physician) TOTAL PROTEIN 6.5 g/dL Normal (applies [facility] to non-numeric (Ammir results) Natalee Physician) Microalbumin 4.5 g/dL Normal (applies [facility] [Mass/time] in to non-numeric (Ammir Urine collected results) Natalee for unspecified Physician) duration Globulin 2.0 gldl Normal (applies [facility] [Mass/time] in to non-numeric (Ammir 24 hour Urine results) Natalee Physician) A/G RATIO 2.25 Above high normal [facility] g/dl (Ammir Natalee Physician) BILIRUBIN, TOTAL 0.5 Normal (applies [facility] mg/dL to non-numeric (Ammir results) Natalee Physician) ALKALINE 52 U/L Normal (applies [facility] PHOSPHATASE, ALP to non-numeric (Ammir results) Natalee Physician) ALT (SGPT) 23 U/L Normal (applies [facility] to non-numeric (Ammir results) Natalee Physician) AST 20 U/L Normal (applies [facility] to non-numeric (Ammir results) Natalee Physician) EGFR NON AFR 93 Above high normal [facility] mL/min/1 (Ammir .73m2 Natalee Physician) EGFR AFR 113 Above high normal [facility] mL/min/1 (Ammir .73m2 Natalee Physician) ID Date Data Source [id number] 09/08/2018 12:00:00 AM EDT [facility] (Ammir Natalee Physician) Name Value Range Interpretation Description Data Sup porting Code Source(s) Document(s ) Ferritin 13.5 Normal (applies to [facility] (Amm ir [Interpretat ng/mL non-numeric Natalee ion] in results) Physician) Blood ID Date Data Source [id number] 09/08/2018 12:00:00 AM EDT [facility] (Ammir Natalee Physician) Name Value Range Interpretation Description Data Sup porting Code Source(s) Document(s ) Transferrin 244 mg/dL Normal (applies [facility] [Mass/time] in to non-numeric (Ammir 24 hour Urine results) Natalee Physician) TIBC 342.1 Normal (applies [facility] ug/dL to non-numeric (Ammir results) Natalee Physician) UIBC 276.1 Normal (applies [facility] ug/dL to non-numeric (Ammir results) Natalee Physician) %SATURATION 19.3 % Normal (applies [facility] to non-numeric (Ammir results) Natalee Physician) ID Date Data Source [id number] 09/08/2018 12:00:00 AM EDT [facility] (Ammir Natalee Physician) Name Value Range Interpretation Description Data Sup porting Code Source(s) Document(s ) WBC 4.9 Normal (applies [facility] 10(3)/uL to non-numeric (Ammir results) Natalee Physician) RBC 4.4 Normal (applies [facility] 10(6)/uL to non-numeric (Ammir results) Natalee Physician) Hematocrit 36.0 % Normal (applies [facility] [Pure volume to non-numeric (Ammir fraction] of results) Natalee Blood by Physician) Automated count Hemoglobin 11.8 g/dL Below low normal [facility] [Mass/volume] (Ammir in Mixed venous Natalee blood by Physician) Oximetry MCV 82.8 fL Normal (applies [facility] to non-numeric (Ammir results) Natalee Physician) MCHC 33 g/dL Normal (applies [facility] to non-numeric (Ammir results) Natalee Physician) MCH 27 pg Normal (applies [facility] to non-numeric (Ammir results) Natalee Physician) RDWSD 46.1 fL Normal (applies [facility] to non-numeric (Ammir results) Natalee Physician) Platelet Count 232 Normal (applies [facility] 10(3)/uL to non-numeric (Ammir results) Natalee Physician) RDWCV 15.3 % Normal (applies [facility] to non-numeric (Ammir results) Natalee Physician) MPV 10.7 fL Normal (applies [facility] to non-numeric (Ammir results) Natalee Physician) Neutrophil Abs 2.98 Normal (applies [facility] 10(3)/uL to non-numeric (Ammir results) Natalee Physician) Lymphocyte Abs 1.40 Normal (applies [facility] 10(3)/uL to non-numeric (Ammir results) Natalee Physician) Monocyte Abs 0.39 Normal (applies [facility] 10(3)/uL to non-numeric (Ammir results) Natalee Physician) Eosinophil Abs 0.11 Normal (applies [facility] 10(3)/uL to non-numeric (Ammir results) Natalee Physician) Lymphocyte % 29 % Normal (applies [facility] to non-numeric (Ammir results) Natalee Physician) Neutrophil % 60.60 % Normal (applies [facility] to non-numeric (Ammir results) Natalee Physician) Monocyte % 7.9 % Normal (applies [facility] to non-numeric (Ammir results) Natalee Physician) Eosinophil % 2.2 % Normal (applies [facility] to non-numeric (Ammir results) Natalee Physician) Basophil % 0.6 % Normal (applies [facility] to non-numeric (Ammir results) Natalee Physician) Immature 0.20 % Normal (applies [facility] Granulocyte % to non-numeric (Ammir results) Natalee Physician) ID Date Data Source [id number] 09/08/2018 12:00:00 AM EDT [facility] (Ammir Natalee Physician) Name Value Range Interpretation Code Description Data Patria rce(s) Supporting Document(s ) IRON, 66 ug/dL Normal (applies to [facility] (Amm ir TOTAL non-numeric Natalee results) Physician) ID Date Data Source [id number] 07/11/2018 12:00:00 AM EDT [facility] (Ammir Natalee Physician) Name Value Range Interpretation Description Data Sup porting Code Source(s) Document(s ) Cholesterol 182 Normal (applies [facility] [Moles/volume] mg/dL to non-numeric (Ammir in Pericardial results) Natalee fluid Physician) LDL CALCULATION 102.6 Normal (applies [facility] mg/dL to non-numeric (Ammir results) Natalee Physician) CHOL/HDL RATIO 2.76 Normal (applies [facility] ratio to non-numeric (Ammir results) Natalee Physician) HDL CHOLESTEROL 66 mg/dL Above high normal [facility] (Ammir Natalee Physician) VLDL CALCULATION 13.4 Normal (applies [facility] mg/dl to non-numeric (Ammir results) Natalee Physician) TRIGLYCERIDES 67 mg/dL Normal (applies [facility] to non-numeric (Ammir results) Natalee Physician) ID Date Data Source [id number] 07/11/2018 12:00:00 AM EDT [facility] (Ammir Natalee Physician) Name Value Range Interpretation Description Data Sup porting Code Source(s) Document(s ) GLUCOSE 77 mg/dL Normal (applies [facility] NONFASTING,SERUM to non-numeric (Ammir results) Natalee Physician) SODIUM, SERUM 138 Normal (applies [facility] mEq/L to non-numeric (Ammir results) Natalee Physician) POTASSIUM, SERUM 4.8 Normal (applies [facility] mEq/L to non-numeric (Ammir results) Natalee Physician) CHLORIDE, SERUM 104 Normal (applies [facility] mEq/L to non-numeric (Ammir results) Natalee Physician) Carbon dioxide 28 mEq/L Normal (applies [facility] [VFr/PPres] in to non-numeric (Ammir Gas delivery results) Natalee system Physician) Anion gap in 10.8 Normal (applies [facility] Body fluid mEq/L to non-numeric (Ammir results) Natalee Physician) BLOOD UREA 17 mg/dL Normal (applies [facility] NITROGEN to non-numeric (Ammir results) Natalee Physician) CALCIUM, SERUM 8.7 Normal (applies [facility] mg/dL to non-numeric (Ammir results) Natalee Physician) CREATININE, 0.70 Normal (applies [facility] SERUM mg/dL to non-numeric (Ammir results) Natalee Physician) TOTAL PROTEIN 6.6 g/dL Normal (applies [facility] to non-numeric (Ammir results) Natalee Physician) Microalbumin 4.2 g/dL Normal (applies [facility] [Mass/time] in to non-numeric (Ammir Urine collected results) Natalee for unspecified Physician) duration Globulin 2.4 gldl Normal (applies [facility] [Mass/time] in to non-numeric (Ammir 24 hour Urine results) Natalee Physician) A/G RATIO 1.75 Normal (applies [facility] g/dl to non-numeric (Ammir results) Natalee Physician) BILIRUBIN, TOTAL 0.5 Normal (applies [facility] mg/dL to non-numeric (Ammir results) Natalee Physician) ALT (SGPT) 22 U/L Normal (applies [facility] to non-numeric (Ammir results) Natalee Physician) ALKALINE 48 U/L Normal (applies [facility] PHOSPHATASE, ALP to non-numeric (Ammir results) Natalee Physician) AST 22 U/L Normal (applies [facility] to non-numeric (Ammir results) Natalee Physician) EGFR NON AFR 93 Above high normal [facility] mL/min/1 (Ammir .73m2 Natalee Physician) EGFR AFR 113 Above high normal [facility] mL/min/1 (Ammir .73m2 Natalee Physician) ID Date Data Source [id number] 07/11/2018 12:00:00 AM EDT [facility] (Ammir Natalee Physician) Name Value Range Interpretation Description Data Sup porting Code Source(s) Document(s ) T4 FREE, 1.05 Normal (applies to [facility] THYROXINE ng/dL non-numeric (Ammir results) Natalee Physician) TSH,3RD 1.32 Normal (applies to [facility] GENERATION uIU/mL non-numeric (Ammir results) Natalee Physician) ID Date Data Source [id number] 07/11/2018 12:00:00 AM EDT [facility] (Ammir Natalee Physician) Name Value Range Interpretation Code Description Data Patria rce(s) Supporting Document(s ) JERRI 0.3 Ratio Normal (applies to [facility] (Amm ir Screen(Sy non-numeric Natalee mphony) results) Physician) ID Date Data Source [id number] 07/11/2018 12:00:00 AM EDT [facility] (Ammir Natalee Physician) Name Value Range Interpretation Description Data Sup porting Code Source(s) Document(s ) ASO 151.4 Normal (applies [facility] ANTISTREPTOLYSIN O IU/mL to non-numeric (Ammir AB results) Natalee Physician) ID Date Data Source [id number] 07/11/2018 12:00:00 AM EDT [facility] (Ammir Natalee Physician) Name Value Range Interpretation Code Description Data Patria rce(s) Supporting Document(s ) C-REACTIVE <0.4 Normal (applies to [facility] (Am pam PROTEIN non-numeric Natalee (INFL) results) Physician) ID Date Data Source [id number] 07/11/2018 12:00:00 AM EDT [facility] (Ammir Natalee Physician) Name Value Range Interpretation Description Data Sup porting Code Source(s) Document(s ) MICROALBUMIN 0.3 Normal (applies [facility] URINE mg/dL to non-numeric (Ammir results) Natalee Physician) CREATININE, 33.9 Normal (applies [facility] URINE mg/dL to non-numeric (Ammir results) Natalee Physician) MICROALBUMIN/CRE 8.8 mg/g Normal (applies [facility] ATININ RATIO creat to non-numeric (Ammir results) Natalee Physician) ID Date Data Source [id number] 07/11/2018 12:00:00 AM EDT [facility] (Ammir Natalee Physician) Name Value Range Interpretation Description Data Sup porting Code Source(s) Document(s ) HEPATITIS C NONREACTIVE Normal (applies [facility] AB QL to non-numeric (Ammir results) Natalee Physician) ID Date Data Source [id number] 07/11/2018 12:00:00 AM EDT [facility] (Ammir Natalee Physician) Name Value Range Interpretation Description Data Sup porting Code Source(s) Document(s ) HEPATITIS BS NONREACTIVE Normal (applies [facility] AG SCREEN to non-numeric (Ammir results) Natalee Physician) ID Date Data Source [id number] 07/11/2018 12:00:00 AM EDT [facility] (Ammir Natalee Physician) Name Value Range Interpretation Description Data Sup porting Code Source(s) Document(s ) HEPATITIS B 70.21 Normal (applies to [facility] (A mmir SURFACE AB (REACTIVE non-numeric Natalee ) results) Physician) ID Date Data Source [id number] 07/11/2018 12:00:00 AM EDT [facility] (Ammir Natalee Physician) Name Value Range Interpretation Description Data Sup porting Code Source(s) Document(s ) HEPATITIS A NONREACTIVE Normal (applies [facility] AB to non-numeric (Ammir results) Natalee Physician) ID Date Data Source [id number] 07/11/2018 12:00:00 AM EDT [facility] (Ammir Natalee Physician) Name Value Range Interpretation Description Data Sup porting Code Source(s) Document(s ) FOLATE SERUM 22.2 Above high normal [facility] (A mmir ng/mL Natalee Physician) VITAMIN B12 288 pg/mL Normal (applies to [facility] (A mmir non-numeric Natalee results) Physician) ID Date Data Source [id number] 07/11/2018 12:00:00 AM EDT [facility] (Ammir Natalee Physician) Name Value Range Interpretation Code Description Data Patria rce(s) Supporting Document(s ) URIC ACID 4.2 mg/dL Normal (applies to [facility] (Amm ir non-numeric Natalee results) Physician) ID Date Data Source [id number] 07/11/2018 12:00:00 AM EDT [facility] (Ammir Natalee Physician) Name Value Range Interpretation Description Data Sup porting Code Source(s) Document(s ) VITAMIN D 12.99 Below low normal [facility] (Ammir 25-HYDROXY ng/mL Natalee Physician) ID Date Data Source [id number] 07/11/2018 12:00:00 AM EDT [facility] (Ammir Natalee Physician) Name Value Range Interpretation Description Data Sup porting Code Source(s) Document(s ) Hemoglobin A1c 5.2 % Normal (applies to [facility] (Ammir in Blood non-numeric Natalee results) Physician) ID Date Data Source [id number] 07/11/2018 12:00:00 AM EDT [facility] (Ammir Natalee Physician) Name Value Range Interpretation Description Data Sup porting Code Source(s) Document(s ) CRP, HIGH 0.47 mg/L Normal (applies [facility] SENSITIVITY to non-numeric (Ammir results) Natalee Physician) ID Date Data Source [id number] 07/11/2018 12:00:00 AM EDT [facility] (Ammir Natalee Physician) Name Value Range Interpretation Code Description Data Patria rce(s) Supporting Document(s ) LYME TOTAL 0.1 Normal (applies to [facility] (Am pam IGG/IGM non-numeric results) Natalee Physician) ID Date Data Source [id number] 07/11/2018 12:00:00 AM EDT [facility] (Ammir Natalee Physician) Name Value Range Interpretation Description Data Sup porting Code Source(s) Document(s ) RHEUMATOID 7.00 Normal (applies to [facility] FACTOR IGG/IGM IU/mL non-numeric (Ammir results) Natalee Physician) ID Date Data Source [id number] 07/11/2018 12:00:00 AM EDT [facility] (Ammir Natalee Physician) Name Value Range Interpretation Code Description Data Patria rce(s) Supporting Document(s ) dsDNA 3.3 IU/ml Normal (applies to [facility] (Amm ir non-numeric results) Natalee Physician) ID Date Data Source [id number] 07/11/2018 12:00:00 AM EDT [facility] (Ammir Natalee Physician) Name Value Range Interpretation Code Description Data Patria rce(s) Supporting Document(s ) ESR 6 mm/hr Normal (applies to [facility] (Amm ir non-numeric results) Natalee Physician) ID Date Data Source [id number] 07/11/2018 12:00:00 AM EDT [facility] (Ammir Natalee Physician) Name Value Range Interpretation Description Data Sup porting Code Source(s) Document(s ) GLUCOSE UA NEGATIVE Normal (applies [facility] to non-numeric (Ammir results) Natalee Physician) BILIRUBIN, TOTAL NEGATIVE Normal (applies [facility] to non-numeric (Ammir results) Natalee Physician) Ketones NEGATIVE Normal (applies [facility] [Presence] in to non-numeric (Ammir Blood by Tablet results) Natalee Physician) Specific gravity 1.010 SG Normal (applies [facility] of Pericardial units to non-numeric (Ammir fluid by results) [facility] Refractometry Physician) Blood [Presence] NEGATIVE Normal (applies [facility] in Urine by to non-numeric (Ammir Visual results) Natalee Physician) pH of Lower 6 Ph units Normal (applies [facility] respiratory to non-numeric (Ammir specimen results) Natalee Physician) Urobilinogen 0-2.0 Normal (applies [facility] [Presence] in to non-numeric (Ammir Urine by results) [facility] Automated test Physician) strip Protein NEGATIVE Normal (applies [facility] [Mass/volume] in to non-numeric (Ammir Lower results) [facility] respiratory Physician) specimen Nitrite NEGATIVE Normal (applies [facility] [Presence] in to non-numeric (Ammir Urine by Test results) [facility] strip Physician) Leukocyte NEGATIVE Normal (applies [facility] esterase to non-numeric (Ammir [Presence] in results) Natalee Body fluid by Physician) Automated test strip Color of YELLOW Normal (applies [facility] Peritoneal to non-numeric (Ammir dialysis fluid results) Natalee Physician) TRANSPARENCY CLEAR Normal (applies [facility] to non-numeric (Ammir results) Natalee Physician) ID Date Data Source [id number] 07/11/2018 12:00:00 AM EDT [facility] (Ammir Natalee Physician) Name Value Range Interpretation Description Data Sup porting Code Source(s) Document(s ) Ferritin 3.3 ng/mL Below low normal [facility] (Ammir [Interpretat Natalee ion] in Physician) Blood ID Date Data Source [id number] 07/11/2018 12:00:00 AM EDT [facility] (Ammir Natalee Physician) Name Value Range Interpretation Description Data Sup porting Code Source(s) Document(s ) RBC 3.7 Below low normal [facility] 10(6)/uL (Ammir Natalee Physician) WBC 3.5 Below low normal [facility] 10(3)/uL (Ammir Natalee Physician) Hematocrit 29.7 % Below low normal [facility] [Pure volume (Ammir fraction] of Natalee Blood by Physician) Automated count Hemoglobin 9.4 g/dL Below low normal [facility] [Mass/volume] (Ammir in Mixed venous Natalee blood by Physician) Oximetry MCV 81.1 fL Normal (applies [facility] to non-numeric (Ammir results) Natalee Physician) MCH 26 pg Normal (applies [facility] to non-numeric (Ammir results) Natalee Physician) MCHC 32 g/dL Normal (applies [facility] to non-numeric (Ammir results) Natalee Physician) RDWSD 38.3 fL Normal (applies [facility] to non-numeric (Ammir results) Natalee Physician) RDWCV 13.1 % Normal (applies [facility] to non-numeric (Ammir results) Natalee Physician) MPV 11.9 fL Normal (applies [facility] to non-numeric (Ammir results) Natalee Physician) Platelet Count 238 Normal (applies [facility] 10(3)/uL to non-numeric (Ammir results) Natalee Physician) Neutrophil Abs 2.03 Normal (applies [facility] 10(3)/uL to non-numeric (Ammir results) Natalee Physician) Lymphocyte Abs 0.97 Normal (applies [facility] 10(3)/uL to non-numeric (Ammir results) Natalee Physician) Eosinophil Abs 0.11 Normal (applies [facility] 10(3)/uL to non-numeric (Ammir results) Natalee Physician) Monocyte Abs 0.30 Normal (applies [facility] 10(3)/uL to non-numeric (Ammir results) Natalee Physician) Neutrophil % 58.80 % Normal (applies [facility] to non-numeric (Ammir results) Natalee Physician) Monocyte % 8.7 % Normal (applies [facility] to non-numeric (Ammir results) Natalee Physician) Lymphocyte % 28 % Normal (applies [facility] to non-numeric (Ammir results) Natalee Physician) Eosinophil % 3.2 % Normal (applies [facility] to non-numeric (Ammir results) Natalee Physician) Basophil % 0.9 % Normal (applies [facility] to non-numeric (Ammir results) Natalee Physician) Immature 0.30 % Normal (applies [facility] Granulocyte % to non-numeric (Ammir results) Natalee Physician) ID Date Data Source [id number] 07/11/2018 12:00:00 AM EDT [facility] (Ammir Natalee Physician) Name Value Range Interpretation Description Data Sup porting Code Source(s) Document(s ) Transferrin 303 mg/dL Normal (applies [facility] [Mass/time] in to non-numeric (Ammir 24 hour Urine results) Natalee Physician) TIBC 424.9 Normal (applies [facility] ug/dL to non-numeric (Ammir results) Natalee Physician) UIBC 395.9 Above high normal [facility] ug/dL (Ammir Natalee Physician) %SATURATION 6.8 % Below low normal [facility] (Ammir Natalee Physician) ID Date Data Source [id number] 07/11/2018 12:00:00 AM EDT [facility] (Ammir Natalee Physician) Name Value Range Interpretation Code Description Data Patria rce(s) Supporting Document(s ) IRON, 29 ug/dL Below low normal [facility] (Ammir TOTAL Natalee Physician) Procedure Social History Code Duration Value Status Description Data Source(s ) Smoking 11/30/2019 NONSMOKER, NO completed NONSMOKER, NO ETOH [facility] (Ammir 12:00:00 AM EDT ETOH USE, NO USE, NO ILLICIT Ra badi Physician) ILLICIT DRUG DRUG USE USE Smoking 11/30/2019 Never smoked completed Never smoked [facility] (Am pam 12:00:00 AM EDT Natalee Ph ysician) Vital Signs ID Date Data Source [id number] Name Value Range Interpretation Code Description Data Source(s) Heart rate 62 /min 62 /min [facility] (Ammir Natalee Physician) Body temperature 98.1 F 98.1 F [facility] ( Ammir Natalee Physician) Inhaled oxygen 96 % 96 % [facility] (Am pam concentration Natalee Physician) Diastolic blood 68 mm[Hg] 68 mm[Hg] [facility] (A mmir pressure Natalee Physician) Systolic blood 122 mm[Hg] 122 mm[Hg] [facility] (Am pam pressure Natalee Physician) Body height 64 in 64 in [facility] (Ammir Natalee Physician) Heart rate 66 /min 66 /min [facility] (Ammir Natalee Physician) Inhaled oxygen 98 % 98 % [facility] (Am pam concentration Natalee Physician) Body mass index 26.1 kg/m2 26.1 kg/m2 [facility] (A mmir (BMI) [Ratio] Natalee Physician) Diastolic blood 80 mm[Hg] 80 mm[Hg] [facility] (A mmir pressure Natalee Physician) Systolic blood 154 mm[Hg] 154 mm[Hg] [facility] (Am pam pressure Natalee Physician) Body weight 157 lb 157 lb [facility] (Ammir Natalee Physician) Body height 65 in 65 in [facility] (Ammir Natalee Physician) Heart rate 72 /min 72 /min [facility] (Ammir Natalee Physician) Body temperature 98.6 F 98.6 F [facility] ( Ammir Natalee Physician) Inhaled oxygen 98 % 98 % [facility] (Am pam concentration Natalee Physician) Diastolic blood 82 mm[Hg] 82 mm[Hg] [facility] (A mmir pressure Natalee Physician) Systolic blood 138 mm[Hg] 138 mm[Hg] [facility] (Am pam pressure Natalee Physician) Body weight 151 lb 151 lb [facility] (Ammir Natalee Physician) Heart rate 68 /min 68 /min [facility] (Ammir Natalee Physician) Body temperature 98.4 F 98.4 F [facility] ( Ammir Natalee Physician) Inhaled oxygen 98 % 98 % [facility] (Am pam concentration Natalee Physician) Body mass index 26.3 kg/m2 26.3 kg/m2 [facility] (A mmir (BMI) [Ratio] Natalee Physician) Diastolic blood 70 mm[Hg] 70 mm[Hg] [facility] (A mmir pressure Natalee Physician) Systolic blood 130 mm[Hg] 130 mm[Hg] [facility] (Am pam pressure Natalee Physician) Body weight 153 lb 153 lb [facility] (Ammir Natalee Physician) Body height 64 in 64 in [facility] (Ammir Natalee Physician) Heart rate 65 /min 65 /min [facility] (Ammir Natalee Physician) Body temperature 98.4 F 98.4 F [facility] ( Ammir Natalee Physician) Inhaled oxygen 98 % 98 % [facility] (Am pam concentration Natalee Physician) Body mass index 26.3 kg/m2 26.3 kg/m2 [facility] (A mmir (BMI) [Ratio] Natalee Physician) Diastolic blood 70 mm[Hg] 70 mm[Hg] [facility] (A mmir pressure Natalee Physician) Systolic blood 140 mm[Hg] 140 mm[Hg] [facility] (Am pam pressure Natalee Physician) Body weight 153 lb 153 lb [facility] (Ammir Natalee Physician) Body height 64 in 64 in [facility] (Ammir Natalee Physician) Heart rate 60 /min 60 /min [facility] (Ammir Natalee Physician) Body temperature 98.4 F 98.4 F [facility] ( Ammir Natalee Physician) Inhaled oxygen 99 % 99 % [facility] (Am pam concentration Natalee Physician) Body mass index 25.7 kg/m2 25.7 kg/m2 [facility] (A mmir (BMI) [Ratio] Natalee Physician) Diastolic blood 80 mm[Hg] 80 mm[Hg] [facility] (A mmir pressure Natalee Physician) Systolic blood 120 mm[Hg] 120 mm[Hg] [facility] (Am pam pressure Natalee Physician) Body weight 150 lb 150 lb [facility] (Ammir Natalee Physician) Body height 64 in 64 in [facility] (Ammir Natalee Physician) Heart rate 66 /min 66 /min [facility] (Ammir Natalee Physician) Inhaled oxygen 95 % 95 % [facility] (Am pam concentration Natalee Physician) Body mass index 25.7 kg/m2 25.7 kg/m2 [facility] (A mmir (BMI) [Ratio] Natalee Physician) Diastolic blood 80 mm[Hg] 80 mm[Hg] [facility] (A mmir pressure Natalee Physician) Systolic blood 130 mm[Hg] 130 mm[Hg] [facility] (Am pam pressure Natalee Physician) Body weight 150 lb 150 lb [facility] (Ammir Natalee Physician) Body height 64 in 64 in [facility] (Ammir Natalee Physician) Diastolic blood 90 mm[Hg] 90 mm[Hg] [facility] (A mmir pressure Natalee Physician) Systolic blood 130 mm[Hg] 130 mm[Hg] [facility] (Am pam pressure Natalee Physician) Body weight 155 lb 155 lb [facility] (Ammir Natalee Physician) Diastolic blood 80 mm[Hg] 80 mm[Hg] [facility] (A mmir pressure Natalee Physician) Systolic blood 142 mm[Hg] 142 mm[Hg] [facility] (Am pam pressure Natalee Physician) Body weight 158 lb 158 lb [facility] (Ammir Natalee Physician) Heart rate 62 /min 62 /min [facility] (Ammir Natalee Physician) Inhaled oxygen 98 % 98 % [facility] (Am pam concentration Natalee Physician) Body mass index 30.5 kg/m2 30.5 kg/m2 [facility] (A mmir (BMI) [Ratio] Natalee Physician) Diastolic blood 90 mm[Hg] 90 mm[Hg] [facility] (A mmir pressure Natalee Physician) Systolic blood 142 mm[Hg] 142 mm[Hg] [facility] (Am pam pressure Natalee Physician) Body weight 164.2 lb 164.2 lb [facility] (Ammir Natalee Physician) Body height 61.5 in 61.5 in [facility] (Ammir Natalee Physician) Heart rate 64 /min 64 /min [facility] (Ammir Natalee Physician) Inhaled oxygen 98 % 98 % [facility] (Am pam concentration Natalee Physician) Body mass index 30.5 kg/m2 30.5 kg/m2 [facility] (A mmir (BMI) [Ratio] Natalee Physician) Diastolic blood 85 mm[Hg] 85 mm[Hg] [facility] (A mmir pressure Natalee Physician) Systolic blood 145 mm[Hg] 145 mm[Hg] [facility] (Am pam pressure Natalee Physician) Body weight 164.2 lb 164.2 lb [facility] (Ammir Natalee Physician) Body height 61.5 in 61.5 in [facility] (Ammir Natalee Physician)
== END 2019-11-30 19:25 | disposition home or self-care (01) ==
LOC: FER 15:51
DX: R10.9 Unspecified abdominal pain (principal)
CPT/HCPCS: 36415; 74176-TC; 76775; 80053; 81003; 81015; 85025; 99285-25

== ENCOUNTER 2020-03-31 14:47 | Emergency (ER) | payer OTHER ==
[2020-03-31 15:00] VITALS: BP 145/97; PULSE 101; TEMP 98; BMI 26.6
[2020-03-31] MEDS ORDERED: SODIUM CHLORIDE 1,000 ML IV STA ×2 (15:01→17:52)
[2020-03-31] MEDS ORDERED: ONDANSETRON 4 MG/2 ML VIAL IVPUSH ONE (15:16)
[2020-03-31] MEDS ORDERED: FAMOTIDINE 20 MG/50 ML IVPB 20 MG/50 ML MG IVPB ONE ×2 (15:16→15:26)
[2020-03-31] MEDS ORDERED: METOCLOPRAMIDE HCL INJECTION 10 MG/2 ML VIAL IVPUSH ONE (15:25)
[2020-03-31] MEDS ORDERED: METOCLOPRAMIDE HCL INJECTION 10 MG/2 ML VIAL ONE (15:26)
[2020-03-31 15:36] LABS: BASO % 0.5 % (0-2.0); HEMOGLOBIN 13.9 GM/dl (10.7-15.3); LYMPH % 15.6 % (8-40); MCH 28.7 pg (25.7-33.7); MCHC 33.8 g/dl (32.0-36.0); MEAN PLT VOLUME 8.8 fl (7.5-11.1); MONO % 11.4 % (3.8-10.2); NEUT % 71.5 % (42.8-82.8); PLATELET COUNT 200 K/MM3 (134-434); RBC 4.83 M/mm3 (3.60-5.2); RDW 12.4 % (11.6-15.6); WHITE BLOOD COUNT 5.5 K/mm3 (4.0-10.8)
[2020-03-31 15:51] LABS: ALBUMIN 4.1 g/dl (3.4-5.0); BILIRUBIN,TOTAL 0.6 mg/dl (0.2-1); CALCIUM 8.9 mg/dl (8.5-10); CREATININE 0.5 mg/dl (0.55-1.3); MAGNESIUM 1.6 mg/dL (1.8-2.4); POTASSIUM 3.5 mmol/L (3.5-5.1); TOT PROT 6.8 g/dl (6.4-8.2)
[2020-03-31] MEDS ORDERED: MAGNESIUM SULF 50% (8.12 MEQ/2 ML-1 GM VIAL) IVPB ONE ×2 (16:12→16:45)
[2020-03-31] MEDS ORDERED: MAG HYDROX/AL HYDROX/SIMETH 30 ML UNIT-DOSE CUP PO ONE (16:14)
[2020-03-31] MEDS ORDERED: MAG HYDROX/AL HYDROX/SIMETH 30 ML UNIT-DOSE CUP ONE (16:20)
[2020-03-31] MEDS ORDERED: MAGNESIUM 1GM/D5W - 1 GM/100 ML IVPB IVPB ONE (16:20)
[2020-03-31 16:45] LABS: ACTIVATED PTT 28.5 SECONDS (25.2-36.5)
[2020-03-31 16:50] LABS: INR 1.22 (0.82-1.09); PROTHROMBIN TIME (PATIENT) 13.5 SEC (10.2-13.0)
[2020-03-31 18:58] LABS: EPITHELIAL CELLS FEW /hpf
== END 2020-03-31 19:10 | disposition home or self-care (01) ==
LOC: FER 14:47
PROC: 3E033GC Introduction of Other Therapeutic Substance into Peripheral Vein, Percutaneous Approach (ICD-10-PCS; principal; 2020-03-31)
PROC: 3E033GC Introduction of Other Therapeutic Substance into Peripheral Vein, Percutaneous Approach (ICD-10-PCS; 2020-03-31)
PROC: 3E033GC Introduction of Other Therapeutic Substance into Peripheral Vein, Percutaneous Approach (ICD-10-PCS; 2020-03-31)
PROC: 3E033GC Introduction of Other Therapeutic Substance into Peripheral Vein, Percutaneous Approach (ICD-10-PCS; 2020-03-31)
PROC: 3E0337Z Introduction of Electrolytic and Water Balance Substance into Peripheral Vein, Percutaneous Approach (ICD-10-PCS; 2020-03-31)
PROC: 3E0337Z Introduction of Electrolytic and Water Balance Substance into Peripheral Vein, Percutaneous Approach (ICD-10-PCS; 2020-03-31)
DX: R11.2 Nausea with vomiting, unspecified (principal); R19.7 Diarrhea, unspecified; B34.9 Viral infection, unspecified
CPT/HCPCS: 36415; 71045-TC-FY; 80053; 81003; 81015; 82550; 83690; 83735; 84484; 85025; 85610; 85730; 93005; 99285-25; C9803; U0003

== ENCOUNTER 2020-05-22 05:38 | Day surgery (SDC) | payer OTHER ==
[2020-05-21 10:02] VITALS: BMI 23.6
[2020-05-22 08:51] VITALS: TEMP 97
[2020-05-22 09:13] VITALS: PULSE 57
[2020-05-22 09:48] VITALS: BP 166/83
== END 2020-05-22 10:22 | disposition home or self-care (01) ==
LOC: JASU-ENDO 05:38
PROVIDERS: ATTEND Internal Medicine Gastroenterology
PROC: 0DBN8ZX Excision of Sigmoid Colon, Via Natural or Artificial Opening Endoscopic, Diagnostic (ICD-10-PCS; 2020-05-22)
PROC: 0DBB8ZX Excision of Ileum, Via Natural or Artificial Opening Endoscopic, Diagnostic (ICD-10-PCS; 2020-05-22)
PROC: 0DB98ZX Excision of Duodenum, Via Natural or Artificial Opening Endoscopic, Diagnostic (ICD-10-PCS; 2020-05-22)
PROC: 0DB78ZX Excision of Stomach, Pylorus, Via Natural or Artificial Opening Endoscopic, Diagnostic (ICD-10-PCS; 2020-05-22)
PROC: 0DBH8ZX Excision of Cecum, Via Natural or Artificial Opening Endoscopic, Diagnostic (ICD-10-PCS; principal; 2020-05-22 08:00)
DX: Z12.11 Encounter for screening for malignant neoplasm of colon (principal); K64.8 Other hemorrhoids; K63.89 Other specified diseases of intestine; K21.9 Gastro-esophageal reflux disease without esophagitis; K29.50 Unspecified chronic gastritis without bleeding; R19.7 Diarrhea, unspecified; R12 Heartburn

== ENCOUNTER 2021-02-28 11:41 | Emergency (ER) | payer OTHER ==
[2021-02-28 12:18] VITALS: BP 153/84; PULSE 71; TEMP 98; BMI 25.8
== END 2021-02-28 12:45 | disposition home or self-care (01) ==
LOC: JER 11:41
DX: J06.9 Acute upper respiratory infection, unspecified (principal)
CPT/HCPCS: 99283-25; C9803; U0003; U0005

== ENCOUNTER 2022-02-15 16:19 | Emergency (ER) | payer OTHER ==
[2022-02-15] MEDS ORDERED: ONDANSETRON 4 MG/2 ML VIAL IVPUSH ONE (16:28)
[2022-02-15] MEDS ORDERED: SODIUM CHLORIDE 0.9% 1000 ML INFUS.BAG IV ONE (16:28)
[2022-02-15] MEDS ORDERED: FAMOTIDINE 20 MG/50 ML IVPB 20 MG/50 ML MG IVPB ONE ×2 (16:28→16:35)
[2022-02-15] MEDS ORDERED: ONDANSETRON 4 MG/2 ML VIAL ONE (16:34)
[2022-02-15] MEDS ORDERED: ACETAMINOPHEN 1000 MG/100 ML BAG IVPB ONE (16:34)
[2022-02-15] MEDS ORDERED: ACETAMINOPHEN INJECTION 100 ML IVPB ONE (16:35)
[2022-02-15 16:39] VITALS: BP 152/100; PULSE 70; RESP 18; TEMP 98.2; BMI 25.8
[2022-02-15 17:05] LABS: HEMATOCRIT 36.8 % (32.4-45.2); MCH 29.6 pg (25.7-33.7); MCHC 35.4 g/dl (32.0-36.0); MEAN CELL VOLUME 83.6 fl (80-96); MEAN PLT VOLUME 8.3 fl (7.5-11.1); PLATELET COUNT 183.7 10^3/uL (134-434); WHITE BLOOD COUNT 2.6 10^3/uL (4.0-10.8)
[2022-02-15 17:17] LABS: ALBUMIN 4.2 g/dl (3.4-5.0); BILIRUBIN,TOTAL 0.8 mg/dl (0.2-1); CALCIUM 8.7 mg/dl (8.5-10); CREATININE 0.5 mg/dl (0.55-1.3); TOT PROT 6.9 g/dl (6.4-8.2)
[2022-02-15 19:24] LABS: CALCIUM 8.1 mg/dl (8.5-10); CREATININE 0.5 mg/dl (0.55-1.3)
[2022-02-15] MEDS ORDERED: SODIUM CHLORIDE 1,000 ML IV ONE (19:51)
[2022-02-15] MEDS ORDERED: SODIUM CHLORIDE 500 ML IV STA (21:05)
[2022-02-15 22:41] LABS: CALCIUM 8.1 mg/dL (8.5-10.1)
[2022-02-15 22:42] LABS: BLOOD UREA NITROGEN 5.4 mg/dL (7-18)
[2022-02-15 22:45] LABS: CREATININE 0.5 mg/dL (0.55-1.3)
== END 2022-02-15 23:20 | disposition home or self-care (01) ==
LOC: FER 16:19
PROC: 3E0333Z Introduction of Anti-inflammatory into Peripheral Vein, Percutaneous Approach (ICD-10-PCS; principal; 2022-02-15)
PROC: 3E033GC Introduction of Other Therapeutic Substance into Peripheral Vein, Percutaneous Approach (ICD-10-PCS; 2022-02-15)
PROC: 3E033GC Introduction of Other Therapeutic Substance into Peripheral Vein, Percutaneous Approach (ICD-10-PCS; 2022-02-15)
PROC: 3E0337Z Introduction of Electrolytic and Water Balance Substance into Peripheral Vein, Percutaneous Approach (ICD-10-PCS; 2022-02-15)
DX: U07.1 COVID-19 (principal); R11.10 Vomiting, unspecified
CPT/HCPCS: 36415; 71045-TC-FY; 80048; 80053; 83690; 85027; 99284-25

== ENCOUNTER 2022-10-14 21:10 | Emergency (ER) | payer OTHER ==
[2022-10-14 21:18] VITALS: RESP 18; TEMP 98.4; BMI 28.3
[2022-10-14] MEDS ORDERED: DIPHTH,PERTUSS(ACELL),TET 0.5 ML DISP.SYRIN IM ONE ×2 (21:32→21:45)
[2022-10-14] MEDS ORDERED: ACETAMINOPHEN 500 MG TABLET (FP) PO ONE (21:32)
[2022-10-14] MEDS ORDERED: ACETAMINOPHEN 325 MG TABLET (FP) ONE (21:44)
[2022-10-14 22:40] VITALS: BP 187/94; PULSE 74
== END 2022-10-15 00:17 | disposition home or self-care (01) ==
LOC: JER 21:10
PROC: 3E0234Z Introduction of Serum, Toxoid and Vaccine into Muscle, Percutaneous Approach (ICD-10-PCS; principal; 2022-10-14)
DX: S93.402A Sprain of unspecified ligament of left ankle, initial encounter (principal); S00.93XA Contusion of unspecified part of head, initial encounter; S00.11XA Contusion of right eyelid and periocular area, initial encounter; S00.211A Abrasion of right eyelid and periocular area, initial encounter; S80.211A Abrasion, right knee, initial encounter; M79.641 Pain in right hand; M79.642 Pain in left hand; R22.42 Localized swelling, mass and lump, left lower limb; W01.0XXA Fall on same level from slipping, tripping and stumbling without subsequent striking against object, initial encounter; Y93.01 Activity, walking, marching and hiking
CPT/HCPCS: 70450-TC; 70486-TC; 72125-TC; 73110-TC-RT-FY; 73130-TC-RT-FY; 73562-TC-RT-FY; 73610-TC-LT-FY; 73630-TC-LT; 90715; 99284-25